=== PATIENT | female | born 1980 | race Two or more races ===

== ENCOUNTER 2024-09-15 11:16 | Inpatient (IN) | payer OTHER ==
[~2024-09-15] VITALS: Ht 149.9 cm; Wt 65.8 kg
[2024-09-15] MEDS ORDERED: VITAMIN E400 UNI7 PO (12:30)
[2024-09-21] MEDS ORDERED: BUPIVACAINE HCL 30 ML VIAL IJ ONE (08:45)
[2024-09-21] MEDS ORDERED: CEFTRIAXONE SODIUM 2,000 MG VIAL IV ONE (08:45)
[2024-09-21] MEDS ORDERED: METRONIDAZOLE/SODIUM CHLORIDE 500 MG/100 ML PIGGYBACK IV ONE (08:45)
[2024-09-21] MEDS ORDERED: LIDOCAINE HCL 1%/EPINEPHRINE 20ML VIAL IJ ONE (09:00)
[2024-09-21] MEDS ORDERED: MORPHINE SULFATE 4 MG/ML VIAL IV ONE ×2 (11:05→11:35)
[2024-09-21] MEDS ORDERED: ONDANSETRON HCL 2 MG/ML VIAL IV ONE (11:10)
[2024-09-21] MEDS ORDERED: OxyCODONE HCL 5 MG TABLET (ROXICODONE) PO PRN (11:45)
[2024-09-21] MEDS ORDERED: MORPHINE SULFATE 4 MG/ML CARTRIDGE IV PRN (11:45)
[2024-09-21] MEDS ORDERED: ONDANSETRON HCL 2 MG/ML VIAL IV PRN (11:45)
[2024-09-21] MEDS ORDERED: RINGERS SOLUTION,LACTATED 1,000 ML IV SCH (11:45)
[2024-09-21 12:32] LABS: HEMATOCRIT 34.7 % (36.0-45.00); HEMOGLOBIN 11.8 g/dL (12.0-15.00); MEAN CELL VOLUME 89.7 fL (80.00-100.00); MEAN CORPUSCULAR HEMOGLOBIN 30.5 pg (27.00-32.0); PLATELET COUNT 210 K/uL (150-450); RED BLOOD COUNT 3.87 M/uL (4.00-6.00); RED CELL DISTRIBUTION WIDTH 12.3 % (11.5-14.5)
[2024-09-21] MEDS ORDERED: HYOSCYAMINE SULFATE 0.125 MG TAB.SUBL SL SCH (13:00)
[2024-09-21] MEDS ORDERED: SIMETHICONE 125 MG CAPSULE PO SCH (13:00)
[2024-09-21] MEDS ORDERED: ACETAMINOPHEN 500 MG GEL..CAP PO SCH (14:00)
[2024-09-21 14:32] VITALS: BP 114/79; O2SAT 97
[2024-09-21 16:43] VITALS: BP 119/83; O2SAT 98
[2024-09-21] MEDS ORDERED: CELECOXIB 200 MG CAPSULE PO SCH (17:00)
[2024-09-21] MEDS ORDERED: POLYETHYLENE GLYCOL 3350 17 GM BLIST.PACK PO SCH (17:00)
[2024-09-21] MEDS ORDERED: GABAPENTIN 300 MG CAPSULE PO SCH (17:00)
[2024-09-21] MEDS ORDERED: METOCLOPRAMIDE HCL 5 MG/ML VIAL IV SCH (17:00)
[2024-09-21] MEDS ORDERED: FAMOTIDINE/PF 20 MG/2 ML VIAL IV PUSH SCH (21:00)
[2024-09-22 00:39] VITALS: BP 107/67; O2SAT 95
[2024-09-22 06:45] LABS: HEMATOCRIT 33.3 % (36.0-45.00); HEMOGLOBIN 11.5 g/dL (12.0-15.00); MEAN CELL VOLUME 88.9 fL (80.00-100.00); MEAN CORPUSCULAR HEMOGLOBIN 30.8 pg (27.00-32.0); MEAN CORPUSCULAR HGB CONC 34.7 g/dl (32.0-36.0); PLATELET COUNT 200 K/uL (150-450); RED BLOOD COUNT 3.75 M/uL (4.00-6.00); RED CELL DISTRIBUTION WIDTH 12.2 % (11.5-14.5)
[2024-09-22 07:25] LABS: ALBUMIN 3.3 gm/dL (3.4-5.0); CALCIUM 8.6 mg/dL (8.5-10.1); CREATININE SERUM 0.62 mg/dL (0.55-1.02); GFR 105.56; MAGNESIUM 1.6 mg/dL (1.8-2.4); PHOSPHOROUS 2.8 mg/dL (2.5-4.9); POTASSIUM 3.53 mEq/L (3.5-5.1)
[2024-09-22 08:45] VITALS: BP 85/61; O2SAT 93
[2024-09-22] MEDS ORDERED: LACTULOSE 20 G/30 ML BLIST.PACK PO SCH (09:00)
[2024-09-22] MEDS ORDERED: LACTOBACILLUS ACIDOPHILUS 1 CAP CAP PO SCH (09:00)
[2024-09-22 10:58] VITALS: BP 102/68; O2SAT 99
[2024-09-22] MEDS ORDERED: MAGNESIUM SULFATE IN WATER 50 ML IV NR (11:35)
[2024-09-22] MEDS ORDERED: ENOXAPARIN SODIUM 40 MG/0.4 ML SYRINGE SUBCUTANEO SCH (17:00)
[2024-09-22 17:23] VITALS: BP 100/62; O2SAT 93
[2024-09-22 18:54] VITALS: BP 79/54; O2SAT 95
[2024-09-22] MEDS ORDERED: 0.9 % SODIUM CHLORIDE 1,000 ML IV SCH (19:00)
[2024-09-22 19:20] VITALS: BP 120/71
[2024-09-23 00:26] VITALS: BP 125/84; O2SAT 96
[2024-09-23 07:26] LABS: HEMATOCRIT 28.6 % (36.0-45.00); HEMOGLOBIN 9.9 g/dL (12.0-15.00); MEAN CELL VOLUME 88.8 fL (80.00-100.00); MEAN CORPUSCULAR HEMOGLOBIN 30.7 pg (27.00-32.0); MEAN CORPUSCULAR HGB CONC 34.6 g/dl (32.0-36.0); PLATELET COUNT 184 K/uL (150-450); RED BLOOD COUNT 3.22 M/uL (4.00-6.00); RED CELL DISTRIBUTION WIDTH 12.6 % (11.5-14.5)
[2024-09-23 08:00] VITALS: BP 133/71; O2SAT 98
[2024-09-23 09:00] LABS: CALCIUM 8.3 mg/dL (8.5-10.1); CREATININE SERUM 0.66 mg/dL (0.55-1.02); GFR 98.21; MAGNESIUM 2.2 mg/dL (1.8-2.4); POTASSIUM 3.25 mEq/L (3.5-5.1)
[2024-09-23] MEDS ORDERED: ENOXAPARIN SODIUM 40 MG/0.4 ML SYRINGE SUBCUTANEO SCH (09:00)
[2024-09-23 09:26] LABS: PHOSPHOROUS 1.5 mg/dL (2.5-4.9)
[2024-09-23] MEDS ORDERED: POTASSIUM CHLORIDE 20MEQ/100ML H2O PB IV NR (11:00)
[2024-09-23] MEDS ORDERED: Cyanocobalamin/Mecobalamin 1 TAB.SL SL NR (11:00)
[2024-09-23] MEDS ORDERED: SOD FERRIC GLUC COMPLX/SUCROSE 62.5 MG/5 ML AMPUL IV NR (11:00)
[2024-09-23] MEDS ORDERED: PIPERACILLIN/TAZOBACTAM SODIUM 3.375 GM in 0.9 % SODIUM CHLORIDE 100 ML IV SCH (12:00)
[2024-09-23] MEDS ORDERED: TRAMADOL HCL 50 MG TABLET PO PRN (14:00)
[2024-09-23] MEDS ORDERED: POTASSIUM PHOS,M-BASIC-D-BASIC 15 MM in 0.9 % SODIUM CHLORIDE 250 ML IV ONE (17:00)
[2024-09-23 19:06] VITALS: BP 148/87; O2SAT 98
[2024-09-24 01:31] VITALS: BP 118/75; O2SAT 94
[2024-09-24 06:41] LABS: HEMATOCRIT 26.6 % (36.0-45.00); HEMOGLOBIN 9.1 g/dL (12.0-15.00); MEAN CELL VOLUME 90.5 fL (80.00-100.00); MEAN CORPUSCULAR HEMOGLOBIN 30.8 pg (27.00-32.0); MEAN CORPUSCULAR HGB CONC 34.1 g/dl (32.0-36.0); PLATELET COUNT 198 K/uL (150-450); RED BLOOD COUNT 2.94 M/uL (4.00-6.00); RED CELL DISTRIBUTION WIDTH 12.5 % (11.5-14.5)
[2024-09-24 07:25] LABS: CALCIUM 8.4 mg/dL (8.5-10.1); CREATININE SERUM 0.57 mg/dL (0.55-1.02); GFR 116.32; MAGNESIUM 2.3 mg/dL (1.8-2.4); PHOSPHOROUS 2.1 mg/dL (2.5-4.9); POTASSIUM 3.23 mEq/L (3.5-5.1)
[2024-09-24 08:09] VITALS: BP 133/84; O2SAT 96
[2024-09-24] MEDS ORDERED: Cyanocobalamin/Mecobalamin 1 TAB.SL SL SCH (09:00)
[2024-09-24] MEDS ORDERED: SOD FERRIC GLUC COMPLX/SUCROSE 62.5 MG in 0.9 % SODIUM CHLORIDE 50 ML IV SCH (09:00)
[2024-09-24] MEDS ORDERED: POTASSIUM PHOS,M-BASIC-D-BASIC 3 MM/ML VIAL IV NR (09:15)
[2024-09-24] MEDS ORDERED: POTASSIUM CHLORIDE 20MEQ/100ML H2O PB IV NR (10:00)
[2024-09-24] MEDS ORDERED: MORPHINE SULFATE 2 MG/ML CARTRIDGE IV PRN (10:30)
[2024-09-24 16:21] VITALS: BP 134/83; O2SAT 97
[2024-09-24] MEDS ORDERED: AA 4.25%/CAL/LYTES/DEXT 5% 1,000 ML PERIFERAL SCH (17:00)
[2024-09-25 01:00] VITALS: BP 137/86; O2SAT 97
[2024-09-25 08:24] VITALS: BP 146/79; O2SAT 95
[2024-09-25 08:47] LABS: CALCIUM 7.9 mg/dL (8.5-10.1); CREATININE SERUM 0.45 mg/dL (0.55-1.02); GFR 152.8; MAGNESIUM 2.1 mg/dL (1.8-2.4); PHOSPHOROUS 2.1 mg/dL (2.5-4.9); POTASSIUM 3.46 mEq/L (3.5-5.1)
[2024-09-25 08:57] LABS: MEAN CELL VOLUME 89.3 fL (80.00-100.00); MEAN CORPUSCULAR HGB CONC 35.5 g/dl (32.0-36.0); PLATELET COUNT 204 K/uL (150-450); RED BLOOD COUNT 2.59 M/uL (4.00-6.00)
[2024-09-25 09:27] LABS: MEAN CORPUSCULAR HEMOGLOBIN 31.6 pg (27.00-32.0)
[2024-09-25 09:29] LABS: HEMOGLOBIN 8.2 g/dL (12.0-15.00)
[2024-09-25 09:31] LABS: HEMATOCRIT 23.1 % (36.0-45.00)
[2024-09-25] MEDS ORDERED: AMINOCAPROIC ACID 250 MG/ML VIAL IV STA (09:43)
[2024-09-25] MEDS ORDERED: FUROsemide 20 MG/2 ML VIAL IV SCH (10:00)
[2024-09-25] MEDS ORDERED: POTASSIUM PHOS,M-BASIC-D-BASIC 3 MM/ML VIAL IV NR (10:00)
[2024-09-25] MEDS ORDERED: POTASSIUM CHLORIDE 20MEQ/100ML H2O PB IV NR (10:30)
[2024-09-25] MEDS ORDERED: AMINOCAPROIC ACID 250 MG/ML VIAL IV SCH (18:00)
[2024-09-25 18:25] VITALS: BP 133/81; O2SAT 94
[2024-09-25] MEDS ORDERED: MELATONIN 5 MG TABLET PO SCH (21:00)
[2024-09-26] VITALS: BP 130/85; O2SAT 97
[2024-09-26 08:25] VITALS: BP 140/93; O2SAT 98
[2024-09-26 11:20] LABS: HEMATOCRIT 31.1 % (36.0-45.00); HEMOGLOBIN 10.6 g/dL (12.0-15.00); MEAN CELL VOLUME 89.8 fL (80.00-100.00); MEAN CORPUSCULAR HEMOGLOBIN 30.8 pg (27.00-32.0); MEAN CORPUSCULAR HGB CONC 34.3 g/dl (32.0-36.0); PLATELET COUNT 215 K/uL (150-450); RED BLOOD COUNT 3.46 M/uL (4.00-6.00); RED CELL DISTRIBUTION WIDTH 13.1 % (11.5-14.5)
[2024-09-26 11:29] LABS: CALCIUM 8.4 mg/dL (8.5-10.1); CREATININE SERUM 0.5 mg/dL (0.55-1.02); GFR 135.3; MAGNESIUM 1.8 mg/dL (1.8-2.4); PHOSPHOROUS 3.1 mg/dL (2.5-4.9); POTASSIUM 3.3 mEq/L (3.5-5.1)
[2024-09-26] MEDS ORDERED: POTASSIUM CHLORIDE 20MEQ/100ML H2O PB IV NR (13:40)
[2024-09-26] MEDS ORDERED: MAGNESIUM SULFATE/D5W 100 ML IV NR (13:40)
[2024-09-26] MEDS ORDERED: MAGNESIUM CHLORIDE 70 MG TABLET.DR PO STA (13:52)
[2024-09-26] MEDS ORDERED: POTASSIUM CHLORIDE 8 MEQ TABLET PO STA (13:52)
[2024-09-26 15:58] VITALS: BP 150/91; O2SAT 98
== END 2024-09-26 16:15 | disposition home or self-care (01) | DRG 331 ==
LOC: O/R 09-21 05:25 → SURH 09-21 11:30 → SURG 09-21 14:04 → SURH 09-21 17:45 → SURG 09-23 15:55
PROVIDERS: Internal Medicine Geriatric Medicine; ADMIT Colon & Rectal Surgery; ATTEND Colon & Rectal Surgery
PROC: 0DBP4ZZ Excision of Rectum, Percutaneous Endoscopic Approach (ICD-10-PCS; 2024-09-21)
PROC: 0TN74ZZ Release Left Ureter, Percutaneous Endoscopic Approach (ICD-10-PCS; 2024-09-21)
PROC: 0TN64ZZ Release Right Ureter, Percutaneous Endoscopic Approach (ICD-10-PCS; 2024-09-21)
PROC: 0DJD8ZZ Inspection of Lower Intestinal Tract, Via Natural or Artificial Opening Endoscopic (ICD-10-PCS; 2024-09-21)
PROC: 0DTN4ZZ Resection of Sigmoid Colon, Percutaneous Endoscopic Approach (ICD-10-PCS; principal; 2024-09-21 17:45)
PROC: 02HV33Z Insertion of Infusion Device into Superior Vena Cava, Percutaneous Approach (ICD-10-PCS; 2024-09-24)
PROC: 30233N1 Transfusion of Nonautologous Red Blood Cells into Peripheral Vein, Percutaneous Approach (ICD-10-PCS; 2024-09-25)
DX: K57.32 Diverticulitis of large intestine without perforation or abscess without bleeding (principal); N80.34 Deep endometriosis of the pelvic sidewall; N80.322 Deep endometriosis of the posterior cul-de-sac; D64.9 Anemia, unspecified

== ENCOUNTER 2024-09-29 04:32 | Inpatient (IN) | payer OTHER ==
[~2024-09-29] VITALS: Ht 152.4 cm; Wt 0.5 kg
[~2024-09-29 04:32] MED LIST: VITAMIN E400 UNI7 PO
[2024-09-29] MEDS ORDERED: MEPERIDINE HCL/PF 50 MG/ML VIAL IM STA ×2 (04:43→09:31)
[2024-09-29] MEDS ORDERED: PROMETHAZINE HCL 50 MG/ML AMPUL IM STA (04:43)
[2024-09-29] MEDS ORDERED: 0.9 % SODIUM CHLORIDE 1,000 ML IV ONE (04:45)
[2024-09-29 04:58] LABS: HEMATOCRIT 36.1 % (36.0-45.00); HEMOGLOBIN 12.8 g/dL (12.0-15.00); MEAN CELL VOLUME 88.5 fL (80.00-100.00); MEAN CORPUSCULAR HEMOGLOBIN 31.5 pg (27.00-32.0); MEAN CORPUSCULAR HGB CONC 35.6 g/dl (32.0-36.0); PLATELET COUNT 325 K/uL (150-450); RED BLOOD COUNT 4.08 M/uL (4.00-6.00); RED CELL DISTRIBUTION WIDTH 13.4 % (11.5-14.5)
--- NOTE | 2024-09-29 05:01 | NUR ---
PTE ALERTA Y ORIENTADA X3, LLEGA EN AMBULANCIA EN COMPANIA DE PARAMEDICOS, REIFERE MUCHO DOLOR EN FLANCO LADO DERECHO. REFIERE EL AILIN FUE OPERADA POR POR ENDOMETRIOSIS. PTE PREVIAMENTE CANALIAZADA, AREA PATENTE Y FARHEEN DE EDEMA. SE ORIENTA SOBRE [place] MEDICO Y REFIERE ENTENDER Y ACEPTAR. SE COLECTAN MUESTRAS DE LAB BAJO MEDIDAS ASEPTICAS. SE ADMINSITRA MEDS NATALY ORDEN MEDICA Y NO PRESENTA REACCION ADVERSA. SE HACE ENTREGA DE ENVASE PARA U/A Y DE CONTRASTE PO PARA CT. PTE BAJO OBSERVACION POR CAMBIOS SIGNIFICATIVOS.
[2024-09-29] MEDS ORDERED: MEPERIDINE HCL/PF 25 MG/ML VIAL IV STA (05:32)
[2024-09-29 05:35] LABS: ALBUMIN 2.8 gm/dL (3.4-5.0); BILIRUBIN TOTAL 0.94 mg/dL (0.3-1.2); CALCIUM 8.5 mg/dL (8.5-10.1); CREATININE SERUM 0.69 mg/dL (0.55-1.02); GFR 93.3; GLOBULINA 3.7 G/DL (2.4-3.5); INR 1.1; PARTIAL THROMBOPLASTIN TIME 27.9 SECONDS (22.0-34.0); POTASSIUM 3.64 mEq/L (3.5-5.1); PROTHROMBIN TIME 11.9 SECONDS (9.0-11.5); TOTAL PROTEIN 6.5 gm/dL (6.4-8.2)
--- NOTE | 2024-09-29 07:20 | NUR ---
SE RECIBE PACIENTE DEL TURNO ANTERIOR ALERTA Y ORIENTADA X3. SE OBSERVA CANALIZACION EN RA CON ANGIO #20 QUE SE ENCUENTRA PATENTE FARHEEN DE EDEMA Y PROCESOS INFECCIOSOS. SE ENCUENTRA CON 0.9NSS BAJANDO A 150ML/HR. PENDIENTE CT.
[2024-09-29] MEDS ORDERED: CIPROFLOXACIN IN 5 % DEXTROSE 400 MG/200 ML PIGGYBAG IV STA (07:24)
[2024-09-29] MEDS ORDERED: METRONIDAZOLE/SODIUM CHLORIDE 500 MG/100 ML PIGGYBACK IV STA (07:24)
[2024-09-29 07:45] LABS: PH,URINE 6.5 (5.0-8.0); URINE APPEARANCE Turbid; URINE BILIRRUBIN Negative (NEGATIVE); URINE COLOR Yellow; URINE GLUCOSE Negative (NEGATIVE); URINE KETONE 15 (NEGATIVE); URINE LEUKOCYTE Small; URINE NITRATE Negative; URINE PROTEIN Trace (NEGATIVE); URINE UROBILINOGEN 0.2 E.U./dl
[2024-09-29 07:49] LABS: URINE BACTERIA 500.1 uL (0.0-1933); URINE EPITHELIAL CELLS 75.7 uL (0.0-38.8); URINE RBC 52.3 uL (0.0-20.8); URINE WBC 59.3 uL (0.0-23.2)
[2024-09-29 08:37] LABS: URINE BLOOD TRACES; URINE CAST 0.76 uL (0.0-1.40)
[2024-09-29 08:39] LABS: URINE CRYSTALS MODERATE /HPF
--- NOTE | 2024-09-29 09:19 | NUR ---
PACIENTE ALERTA Y ORIENTADA X3. SE EDUCA A PACIENTE SOBRE ADMINISTRACION DE MEDICAMENTOS, REFIERE ENTENDER. SE EJECUTAN ORDENES BAJO MEDIDAS ASEPTICAS.
--- NOTE | 2024-09-29 09:20 | NUR ---
SE REALIZA CT DE ABDOMEN.
[2024-09-29] MEDS ORDERED: RINGERS SOLUTION,LACTATED 1,000 ML IV SCH (11:15)
[2024-09-29] MEDS ORDERED: MORPHINE SULFATE 4 MG/ML VIAL IV PRN (11:15)
[2024-09-29] MEDS ORDERED: PIPERACILLIN/TAZOBACTAM SODIUM 3.375 GM in 0.9 % SODIUM CHLORIDE 100 ML IV SCH (12:00)
[2024-09-29 13:58] VITALS: BP 149/95; O2SAT 96
[2024-09-29 14:26] VITALS: BP 140/92
[2024-09-29 15:43] LABS: INR 1.1; PARTIAL THROMBOPLASTIN TIME 29.3 SECONDS (22.0-34.0); PROTHROMBIN TIME 11.9 SECONDS (9.0-11.5)
[2024-09-29 16:21] VITALS: BP 136/89; O2SAT 95
[2024-09-29 16:35] VITALS: BP 116/74; O2SAT 98
[2024-09-29] MEDS ORDERED: METOCLOPRAMIDE HCL 5 MG/ML VIAL IV SCH (17:00)
[2024-09-29] MEDS ORDERED: FAMOTIDINE/PF 20 MG/2 ML VIAL IV SCH (21:00)
[2024-09-30] VITALS: BP 140/87; O2SAT 97
[2024-09-30 06:49] LABS: HEMATOCRIT 35.4 % (36.0-45.00); HEMOGLOBIN 11.8 g/dL (12.0-15.00); MEAN CELL VOLUME 90.9 fL (80.00-100.00); MEAN CORPUSCULAR HEMOGLOBIN 30.3 pg (27.00-32.0); MEAN CORPUSCULAR HGB CONC 33.3 g/dl (32.0-36.0); PLATELET COUNT 299 K/uL (150-450); RED CELL DISTRIBUTION WIDTH 13.4 % (11.5-14.5)
[2024-09-30 07:11] LABS: ALBUMIN 2.5 gm/dL (3.4-5.0); CALCIUM 8.2 mg/dL (8.5-10.1); CREATININE SERUM 0.87 mg/dL (0.55-1.02); GFR 71.4; MAGNESIUM 2.3 mg/dL (1.8-2.4); POTASSIUM 3.92 mEq/L (3.5-5.1)
[2024-09-30 08:00] VITALS: BP 128/78; O2SAT 96
[2024-09-30] MEDS ORDERED: LACTOBACILLUS ACIDOPHILUS 1 CAP CAP PO SCH (09:00)
[2024-09-30 15:00] VITALS: BP 127/86; O2SAT 99
[2024-09-30 16:44] LABS: URINE APPEARANCE Clear; URINE BILIRRUBIN Negative (NEGATIVE); URINE BLOOD Small; URINE COLOR Yellow; URINE GLUCOSE Negative (NEGATIVE); URINE KETONE Trace (NEGATIVE); URINE LEUKOCYTE Small; URINE NITRATE Negative; URINE PROTEIN 30 (NEGATIVE); URINE UROBILINOGEN 0.2 E.U./dl
[2024-09-30 16:45] LABS: URINE BACTERIA 37.7 uL (0.0-1933); URINE RBC 68.2 uL (0.0-20.8); URINE WBC 112.3 uL (0.0-23.2)
[2024-09-30 17:00] LABS: URINE EPITHELIAL CELLS 0-4 /HPF
[2024-09-30] MEDS ORDERED: VANCOMYCIN HCL 1,000 MG VIAL IV SCH (17:00)
[2024-10-01 01:02] VITALS: BP 139/84; O2SAT 98
[2024-10-01 07:01] LABS: HEMATOCRIT 35.2 % (36.0-45.00); HEMOGLOBIN 11.7 g/dL (12.0-15.00); MEAN CELL VOLUME 90.7 fL (80.00-100.00); MEAN CORPUSCULAR HEMOGLOBIN 30.3 pg (27.00-32.0); MEAN CORPUSCULAR HGB CONC 33.4 g/dl (32.0-36.0); PLATELET COUNT 307 K/uL (150-450); RED BLOOD COUNT 3.88 M/uL (4.00-6.00); RED CELL DISTRIBUTION WIDTH 13.3 % (11.5-14.5)
[2024-10-01 07:45] LABS: ALBUMIN 2.6 gm/dL (3.4-5.0); BILIRUBIN TOTAL 0.93 mg/dL (0.3-1.2); CALCIUM 8.4 mg/dL (8.5-10.1); CREATININE SERUM 1.09 mg/dL (0.55-1.02); GFR 55.05; GLOBULINA 4.3 G/DL (2.4-3.5); MAGNESIUM 2.2 mg/dL (1.8-2.4); PHOSPHOROUS 2.2 mg/dL (2.5-4.9); POTASSIUM 3.63 mEq/L (3.5-5.1); TOTAL PROTEIN 6.9 gm/dL (6.4-8.2)
[2024-10-01 07:46] LABS: C-REACTIVE PROTEIN 15.7 MG/DL (0.00-0.29)
[2024-10-01 08:00] VITALS: BP 141/89; O2SAT 99
[2024-10-01] MEDS ORDERED: MORPHINE SULFATE 4 MG/ML CARTRIDGE IV PRN (14:15)
[2024-10-01] MEDS ORDERED: MEROPENEM 500 MG/VIAL VIAL IV NR (14:30)
[2024-10-01] MEDS ORDERED: GABAPENTIN 300 MG CAPSULE PO NR (14:30)
[2024-10-01] MEDS ORDERED: MIDAZOLAM HCL 2 MG/2 ML VIAL IV PUSH ONE (15:30)
[2024-10-01] MEDS ORDERED: fentaNYL CITRATE 50 MCG/ML AMPUL IV PUSH ONE (15:30)
[2024-10-01 19:07] VITALS: BP 156/93; O2SAT 98
[2024-10-01] MEDS ORDERED: MEROPENEM 500 MG/VIAL VIAL IV SCH (20:00)
[2024-10-01] MEDS ORDERED: GABAPENTIN 300 MG CAPSULE PO SCH (21:00)
[2024-10-02 01:04] VITALS: BP 138/90; O2SAT 98
[2024-10-02 08:27] LABS: ALBUMIN 2.6 gm/dL (3.4-5.0); BILIRUBIN TOTAL 0.82 mg/dL (0.3-1.2); CALCIUM 8.4 mg/dL (8.5-10.1); GFR 60.8; GLOBULINA 3.7 G/DL (2.4-3.5); MAGNESIUM 2.2 mg/dL (1.8-2.4); PHOSPHOROUS 3.2 mg/dL (2.5-4.9); POTASSIUM 4.34 mEq/L (3.5-5.1); TOTAL PROTEIN 6.3 gm/dL (6.4-8.2)
[2024-10-02 08:30] LABS: HEMATOCRIT 35.5 % (36.0-45.00); HEMOGLOBIN 11.7 g/dL (12.0-15.00); MEAN CELL VOLUME 91.9 fL (80.00-100.00); MEAN CORPUSCULAR HEMOGLOBIN 30.3 pg (27.00-32.0); PLATELET COUNT 301 K/uL (150-450); RED BLOOD COUNT 3.86 M/uL (4.00-6.00); RED CELL DISTRIBUTION WIDTH 13.4 % (11.5-14.5)
[2024-10-02 08:31] LABS: C-REACTIVE PROTEIN 17.4 MG/DL (0.00-0.29)
[2024-10-02 10:09] VITALS: BP 158/80; O2SAT 98
[2024-10-02 16:30] VITALS: BP 137/81; O2SAT 96
[2024-10-03 01:14] VITALS: BP 120/90; O2SAT 98
[2024-10-03] MEDS ORDERED: CHLORHEXIDINE GLUCONATE 120 ML BOTTLE TOP ONE (09:15)
[2024-10-03] MEDS ORDERED: IOVERSOL 320 MG/ML - 100 ML VIAL IV ONE (09:15)
[2024-10-03 10:28] VITALS: BP 164/72; O2SAT 99
[2024-10-03 16:00] VITALS: BP 123/73; O2SAT 98
[2024-10-04] VITALS: BP 135/84; O2SAT 97
[2024-10-04 08:25] VITALS: BP 121/81; O2SAT 94
[2024-10-04 16:20] VITALS: BP 127/84; O2SAT 99
[2024-10-04] MEDS ORDERED: FLUCONAZOLE IN NACL,ISO-OSM 400 MG/200 ML PIGGYBAG IV SCH (17:00)
[2024-10-04] MEDS ORDERED: MORPHINE SULFATE 4 MG/ML CARTRIDGE IV PRN (21:45)
[2024-10-05] VITALS: BP 128/75; O2SAT 96
[2024-10-05 07:46] LABS: HEMATOCRIT 32.2 % (36.0-45.00); HEMOGLOBIN 11.1 g/dL (12.0-15.00); MEAN CELL VOLUME 88.6 fL (80.00-100.00); MEAN CORPUSCULAR HEMOGLOBIN 30.6 pg (27.00-32.0); MEAN CORPUSCULAR HGB CONC 34.6 g/dl (32.0-36.0); PLATELET COUNT 379 K/uL (150-450); RED BLOOD COUNT 3.63 M/uL (4.00-6.00); RED CELL DISTRIBUTION WIDTH 13.5 % (11.5-14.5)
[2024-10-05 08:02] VITALS: BP 142/70; O2SAT 98
[2024-10-05 09:00] LABS: ALBUMIN 2.7 gm/dL (3.4-5.0); BILIRUBIN TOTAL 0.58 mg/dL (0.3-1.2); CALCIUM 8.9 mg/dL (8.5-10.1); CREATININE SERUM 0.49 mg/dL (0.55-1.02); GFR 138.5; GLOBULINA 3.8 G/DL (2.4-3.5); MAGNESIUM 1.9 mg/dL (1.8-2.4); PHOSPHOROUS 3.9 mg/dL (2.5-4.9); POTASSIUM 4.09 mEq/L (3.5-5.1); TOTAL PROTEIN 6.5 gm/dL (6.4-8.2)
[2024-10-05 09:01] LABS: C-REACTIVE PROTEIN 6.54 MG/DL (0.00-0.29)
[2024-10-05] MEDS ORDERED: FLUCONAZOLE IN NACL,ISO-OSM 200 MG/100 ML PIGGYBAG IV SCH (17:00)
[2024-10-05 18:45] VITALS: BP 145/80; O2SAT 98
[2024-10-06] VITALS: BP 131/77; O2SAT 98
[2024-10-06 08:54] VITALS: BP 122/81; O2SAT 99
[2024-10-06 16:00] VITALS: BP 123/84; O2SAT 98
[2024-10-07] VITALS: BP 122/84; O2SAT 95
[2024-10-07 08:15] VITALS: BP 117/82; O2SAT 99
[2024-10-07] MEDS ORDERED: MORPHINE SULFATE 4 MG/ML CARTRIDGE IV PRN (13:15)
[2024-10-07 16:00] VITALS: BP 118/74; O2SAT 98
[2024-10-08] VITALS: BP 106/72; O2SAT 98
[2024-10-08 08:00] VITALS: BP 139/86; O2SAT 100
[2024-10-08 16:17] VITALS: BP 137/77; O2SAT 98
== END 2024-10-08 20:55 | disposition home or self-care (01) | DRG 372 ==
LOC: ER 04:32 → SURH 12:03
PROVIDERS: General Practice; Internal Medicine Infectious Disease; ADMIT Colon & Rectal Surgery; ATTEND Colon & Rectal Surgery
PROC: BW21YZZ Computerized Tomography (CT Scan) of Abdomen and Pelvis using Other Contrast (ICD-10-PCS; 2024-09-29)
PROC: 0W9G30Z Drainage of Peritoneal Cavity with Drainage Device, Percutaneous Approach (ICD-10-PCS; principal; 2024-10-01)
PROC: 0T9680Z Drainage of Right Ureter with Drainage Device, Via Natural or Artificial Opening Endoscopic (ICD-10-PCS; 2024-10-03)
PROC: BW21YZZ Computerized Tomography (CT Scan) of Abdomen and Pelvis using Other Contrast (ICD-10-PCS; 2024-10-06)
PROC: 02HV33Z Insertion of Infusion Device into Superior Vena Cava, Percutaneous Approach (ICD-10-PCS; 2024-10-08)
DX: K65.1 Peritoneal abscess (principal); K91.870 Postprocedural hematoma of a digestive system organ or structure following a digestive system procedure; N13.30 Unspecified hydronephrosis; B96.20 Unspecified Escherichia coli [E. coli] as the cause of diseases classified elsewhere; B96.89 Other specified bacterial agents as the cause of diseases classified elsewhere

== ENCOUNTER 2024-10-18 08:36 | Inpatient (IN) | payer OTHER ==
[~2024-10-18] VITALS: Ht 149.9 cm; Wt 57.6 kg
--- NOTE | 2024-10-18 08:49 | NUR ---
PACIENTE ALERTA Y ORIENTADA X 3. REFIERE FUE OPERADA EL DE LOS INTESTINOS POR DR GUZMAN Y LUEGO DE ESTO A TENIDO QUE REGRESAR EN VARIAS OCASIONES PARA OTROS PROCEDIMIENTOS. REFIERE DOLOR EN AREA PELVICA LADO DERECHO
[2024-10-18] MEDS ORDERED: CEFTRIAXONE SODIUM 1,000 MG VIAL IV ONE (09:15)
[2024-10-18] MEDS ORDERED: KETOROLAC TROMETHAMINE 30 MG VIAL IV ONE (09:15)
[2024-10-18] MEDS ORDERED: 0.9 % SODIUM CHLORIDE 1,000 ML IV ONE (09:15)
--- NOTE | 2024-10-18 09:23 | NUR ---
MS TREVINO ORIENTA SOBRE TRATAMIENTO MEDICO. CANALIZA VENA Y SE ISAIAH MUESTRAS DE LAB. SE ADMINISTRA MEDICAMENTO POR ORDEN MEDICA. PENDIENTE CT IV
[2024-10-18 09:37] LABS: HEMATOCRIT 34.1 % (36.0-45.00); HEMOGLOBIN 11.5 g/dL (12.0-15.00); MEAN CELL VOLUME 88.2 fL (80.00-100.00); MEAN CORPUSCULAR HEMOGLOBIN 29.7 pg (27.00-32.0); MEAN CORPUSCULAR HGB CONC 33.6 g/dl (32.0-36.0); PLATELET COUNT 256 K/uL (150-450); RED BLOOD COUNT 3.86 M/uL (4.00-6.00); RED CELL DISTRIBUTION WIDTH 13.1 % (11.5-14.5)
[2024-10-18 09:45] LABS: ERYTHROCYTE SEDIMENTATION RATE 83 mm/hr
[2024-10-18 10:12] LABS: INR 1.1; PARTIAL THROMBOPLASTIN TIME 28.7 SECONDS (22.0-34.0); PROTHROMBIN TIME 11.9 SECONDS (9.0-11.5)
[2024-10-18 10:28] LABS: ALBUMIN 3.1 gm/dL (3.4-5.0); BILIRUBIN TOTAL 0.67 mg/dL (0.3-1.2); CALCIUM 9.2 mg/dL (8.5-10.1); CREATININE SERUM 0.67 mg/dL (0.55-1.02); GFR 96.52; GLOBULINA 3.9 G/DL (2.4-3.5); POTASSIUM 4.42 mEq/L (3.5-5.1)
[2024-10-18 10:31] LABS: C-REACTIVE PROTEIN 7.84 MG/DL (0.00-0.29)
[2024-10-18 11:13] LABS: URINE APPEARANCE Turbid; URINE BILIRRUBIN Small (NEGATIVE); URINE BLOOD Large; URINE COLOR Dark Yellow; URINE GLUCOSE Negative (NEGATIVE); URINE KETONE Trace (NEGATIVE); URINE LEUKOCYTE Small; URINE NITRATE Negative
[2024-10-18 11:18] LABS: URINE BACTERIA 772.3 uL (0.0-1933); URINE CAST 1.83 uL (0.0-1.40); URINE EPITHELIAL CELLS 94.7 uL (0.0-38.8); URINE RBC 884.2 uL (0.0-20.8); URINE WBC 748.3 uL (0.0-23.2)
[2024-10-18 12:02] LABS: URINE CRYSTALS FEW /HPF; URINE MUCUS HEAVY; URINE PROTEIN 100 (NEGATIVE)
[2024-10-18] MEDS ORDERED: ONDANSETRON HCL 2 MG/ML VIAL IV PRN (13:30)
[2024-10-18] MEDS ORDERED: MORPHINE SULFATE 4 MG/ML VIAL IV PRN (13:30)
[2024-10-18] MEDS ORDERED: RINGERS SOLUTION,LACTATED 1,000 ML IV SCH (13:30)
[2024-10-18] MEDS ORDERED: GABAPENTIN 300 MG CAPSULE PO SCH (13:33)
[2024-10-18] MEDS ORDERED: PANTOPRAZOLE SODIUM 40 MG/VIAL VIAL IV SCH (13:33)
[2024-10-18] MEDS ORDERED: ACETAMINOPHEN 500 MG GEL..CAP PO SCH (13:36)
[2024-10-18] MEDS ORDERED: PIPERACILLIN/TAZOBACTAM SODIUM 3.375 GM VIAL IV SCH (13:36)
[2024-10-18] MEDS ORDERED: GABAPENTIN 100 MG CAPSULE PO SCH (13:40)
[2024-10-18] MEDS ORDERED: MORPHINE SULFATE 4 MG/ML CARTRIDGE IV PRN (13:45)
[2024-10-18 15:29] VITALS: BP 110/60
[2024-10-18] MEDS ORDERED: AMINO ACIDS 4.25%/DEXTROSE 10% 1,000 ML CENTRAL SCH (17:00)
[2024-10-18 18:00] VITALS: BP 102/67; O2SAT 96
[2024-10-19] VITALS: BP 158/78; BP 93/68; O2SAT 95; O2SAT 97
[2024-10-19 03:20] VITALS: BP 116/67
[2024-10-19 08:27] VITALS: BP 99/64; O2SAT 97
[2024-10-19] MEDS ORDERED: MULTIVIT INFUSN,ADULT 4,VIT K 10 ML in DEXTROSE 5 % IN WATER 500 ML IV SCH (09:55)
[2024-10-19 10:05] LABS: HEMATOCRIT 29.1 % (36.0-45.00); HEMOGLOBIN 9.7 g/dL (12.0-15.00); MEAN CORPUSCULAR HEMOGLOBIN 29.8 pg (27.00-32.0); MEAN CORPUSCULAR HGB CONC 33.5 g/dl (32.0-36.0); PLATELET COUNT 216 K/uL (150-450); RED BLOOD COUNT 3.27 M/uL (4.00-6.00); RED CELL DISTRIBUTION WIDTH 13.4 % (11.5-14.5)
[2024-10-19 11:32] LABS: ALBUMIN 2.6 gm/dL (3.4-5.0); BILIRUBIN TOTAL 0.55 mg/dL (0.3-1.2); CALCIUM 8.4 mg/dL (8.5-10.1); CREATININE SERUM 0.48 mg/dL (0.55-1.02); GFR 141.83; GLOBULINA 3.4 G/DL (2.4-3.5); MAGNESIUM 1.9 mg/dL (1.8-2.4); PHOSPHOROUS 2.7 mg/dL (2.5-4.9); POTASSIUM 4.17 mEq/L (3.5-5.1)
[2024-10-19] MEDS ORDERED: MULTIVIT INFUSN,ADULT 4,VIT K 10 ML VIAL IV SCH (12:00)
[2024-10-19] MEDS ORDERED: Cyanocobalamin/Mecobalamin 1 TAB.SL SL NR (13:00)
[2024-10-19] MEDS ORDERED: SOD FERRIC GLUC COMPLX/SUCROSE 62.5 MG/5 ML AMPUL IV NR (13:00)
[2024-10-19] MEDS ORDERED: MEROPENEM 500 MG/VIAL VIAL IV SCH (14:00)
[2024-10-19] MEDS ORDERED: FLUCONAZOLE IN NACL,ISO-OSM 400 MG/200 ML PIGGYBAG IV NR ×2 (14:00→17:00)
[2024-10-19 15:56] VITALS: BP 110/76; O2SAT 100
[2024-10-19] MEDS ORDERED: ENOXAPARIN SODIUM 40 MG/0.4 ML SYRINGE SUBCUTANEO SCH (17:00)
[2024-10-19] MEDS ORDERED: THIAMINE HCL 100 MG/ML 2 ML VIAL IV SCH (17:00)
[2024-10-20 00:30] VITALS: BP 115/75; O2SAT 99
[2024-10-20 00:30] LABS: PH,URINE 6.5 (5.0-8.0); URINE APPEARANCE Clear; URINE BILIRRUBIN Negative (NEGATIVE); URINE BLOOD Large; URINE COLOR Yellow; URINE GLUCOSE Negative (NEGATIVE); URINE KETONE Negative (NEGATIVE); URINE LEUKOCYTE Moderate; URINE NITRATE Negative; URINE PROTEIN 30 (NEGATIVE); URINE UROBILINOGEN 0.2 E.U./dl
[2024-10-20 00:33] LABS: URINE BACTERIA 192.7 uL (0.0-1933); URINE EPITHELIAL CELLS 43.7 uL (0.0-38.8); URINE RBC 1430.6 uL (0.0-20.8); URINE WBC 173.9 uL (0.0-23.2)
[2024-10-20 00:45] LABS: URINE CAST 0.76 uL (0.0-1.40)
[2024-10-20 00:47] LABS: URINE YEAST FEW /hpf
[2024-10-20 08:23] VITALS: BP 102/68; O2SAT 98
[2024-10-20 08:47] LABS: CALCIUM 8.1 mg/dL (8.5-10.1); CHOL HDL RATIO 6.3 (0-5.0); CREATININE SERUM 0.46 mg/dL (0.55-1.02); GFR 148.97; POTASSIUM 3.7 mEq/L (3.5-5.1)
[2024-10-20] MEDS ORDERED: Cyanocobalamin/Mecobalamin 1 TAB.SL SL SCH (09:00)
[2024-10-20] MEDS ORDERED: SOD FERRIC GLUC COMPLX/SUCROSE 62.5 MG in 0.9 % SODIUM CHLORIDE 50 ML IV SCH (09:00)
[2024-10-20 17:00] VITALS: BP 119/78; O2SAT 99
[2024-10-20] MEDS ORDERED: FLUCONAZOLE IN NACL,ISO-OSM 200 MG/100 ML PIGGYBAG IV SCH (17:00)
[2024-10-21] VITALS: BP 118/75; O2SAT 99
[2024-10-21] MEDS ORDERED: MORPHINE SULFATE 4 MG/ML CARTRIDGE IV PRN (05:30)
[2024-10-21 08:00] VITALS: BP 110/74; O2SAT 97
[2024-10-21 16:15] VITALS: BP 137/87; O2SAT 98
[2024-10-21] MEDS ORDERED: METOCLOPRAMIDE HCL 5 MG/ML VIAL IV SCH (21:15)
[2024-10-22 00:30] VITALS: BP 131/79; O2SAT 100
[2024-10-22 08:00] VITALS: BP 135/87; O2SAT 100
[2024-10-22] MEDS ORDERED: ONDANSETRON HCL 2 MG/ML VIAL IV PRN (08:30)
[2024-10-22] MEDS ORDERED: PANTOPRAZOLE SODIUM 40 MG/VIAL VIAL IV SCH ×2 (09:00→21:00)
[2024-10-22 10:21] LABS: HEMATOCRIT 29.2 % (36.0-45.00); HEMOGLOBIN 9.9 g/dL (12.0-15.00); MEAN CELL VOLUME 87.1 fL (80.00-100.00); MEAN CORPUSCULAR HEMOGLOBIN 29.6 pg (27.00-32.0); PLATELET COUNT 219 K/uL (150-450); RED BLOOD COUNT 3.35 M/uL (4.00-6.00); RED CELL DISTRIBUTION WIDTH 13.1 % (11.5-14.5)
[2024-10-22 11:41] LABS: ALBUMIN 2.5 gm/dL (3.4-5.0); BILIRUBIN TOTAL 0.57 mg/dL (0.3-1.2); CALCIUM 8.9 mg/dL (8.5-10.1); CREATININE SERUM 0.37 mg/dL (0.55-1.02); GFR 191.52; GLOBULINA 3.6 G/DL (2.4-3.5); TOTAL PROTEIN 6.1 gm/dL (6.4-8.2)
[2024-10-22 11:57] LABS: POTASSIUM 2.79 mEq/L (3.5-5.1)
[2024-10-22] MEDS ORDERED: POTASSIUM PHOS,M-BASIC-D-BASIC 15 MM in 0.9 % SODIUM CHLORIDE 250 ML IV ONE (13:00)
[2024-10-22] MEDS ORDERED: POTASSIUM CHLORIDE IN WATER 100 ML IV STA (13:39)
[2024-10-22 17:00] VITALS: BP 138/89; O2SAT 97
[2024-10-22] MEDS ORDERED: PROMETHAZINE HCL 50 MG/ML AMPUL IM PRN (20:45)
[2024-10-23 00:43] VITALS: BP 116/81; O2SAT 95
[2024-10-23 08:30] VITALS: BP 145/86; O2SAT 97
[2024-10-23] MEDS ORDERED: PROMETHAZINE HCL 25 MG/ML AMPUL IV PRN (10:15)
[2024-10-23 13:25] LABS: CALCIUM 8.9 mg/dL (8.5-10.1); CREATININE SERUM 0.43 mg/dL (0.55-1.02); GFR 161.03
[2024-10-23 13:33] LABS: POTASSIUM 2.83 mEq/L (3.5-5.1)
[2024-10-23 16:00] VITALS: BP 143/89; O2SAT 99
[2024-10-23 16:17] LABS: URINE APPEARANCE Turbid; URINE BILIRRUBIN Small (NEGATIVE); URINE BLOOD Large; URINE COLOR Red; URINE GLUCOSE Negative (NEGATIVE); URINE KETONE Negative (NEGATIVE); URINE LEUKOCYTE Moderate; URINE NITRATE Negative; URINE UROBILINOGEN 0.2 E.U./dl
[2024-10-23 16:21] LABS: URINE BACTERIA 578.3 uL (0.0-1933); URINE WBC 943.7 uL (0.0-23.2)
[2024-10-23] MEDS ORDERED: POTASSIUM CHLORIDE IN WATER 40 MEQ/100 ML PIGGYBAG IV SCH (17:00)
[2024-10-23 17:44] LABS: URINE CAST 0.39 uL (0.0-1.40); URINE PROTEIN 100 (NEGATIVE); URINE RBC > 10558.9 uL (0.0-20.8)
[2024-10-23 17:46] LABS: URINE CRYSTALS NEGATIVE /HPF; URINE YEAST NEGATIVE /hpf
[2024-10-24 01:12] VITALS: BP 132/82; O2SAT 99
[2024-10-24 08:00] VITALS: BP 118/82; O2SAT 99
[2024-10-24] MEDS ORDERED: PANTOPRAZOLE SODIUM 40 MG/VIAL VIAL IV SCH (09:00)
[2024-10-24] MEDS ORDERED: ONDANSETRON HCL 2 MG/ML VIAL IV SCH (12:00)
[2024-10-24 16:44] VITALS: BP 127/85; O2SAT 96
[2024-10-25 01:01] VITALS: BP 122/86; O2SAT 96
[2024-10-25 07:11] LABS: HEMATOCRIT 30.1 % (36.0-45.00); HEMOGLOBIN 10.3 g/dL (12.0-15.00); MEAN CELL VOLUME 87.6 fL (80.00-100.00); MEAN CORPUSCULAR HEMOGLOBIN 29.9 pg (27.00-32.0); MEAN CORPUSCULAR HGB CONC 34.2 g/dl (32.0-36.0); PLATELET COUNT 236 K/uL (150-450); RED BLOOD COUNT 3.44 M/uL (4.00-6.00); RED CELL DISTRIBUTION WIDTH 13.7 % (11.5-14.5)
[2024-10-25 07:33] LABS: INR 1.13; PARTIAL THROMBOPLASTIN TIME 28.7 SECONDS (22.0-34.0); PROTHROMBIN TIME 12.2 SECONDS (9.0-11.5)
[2024-10-25 08:10] LABS: ALBUMIN 2.7 gm/dL (3.4-5.0); BILIRUBIN TOTAL 0.72 mg/dL (0.3-1.2); BILIRUBIN,CONJUGATED 0.34 mg/dL (0.0-0.2); BILIRUBIN,UNCONJUGATED 0.38 mg/dL (0.0-0.6); CALCIUM 8.6 mg/dL (8.5-10.1); CHOL HDL RATIO 5.3 (0-5.0); CREATININE SERUM 0.43 mg/dL (0.55-1.02); GFR 161.03; GLOBULINA 3.5 G/DL (2.4-3.5); PHOSPHOROUS 2.5 mg/dL (2.5-4.9); TOTAL PROTEIN 6.2 gm/dL (6.4-8.2)
[2024-10-25 08:43] VITALS: BP 132/92; O2SAT 99
[2024-10-25 09:11] LABS: MAGNESIUM 1.3 mg/dL (1.8-2.4); POTASSIUM 2.95 mEq/L (3.5-5.1)
[2024-10-25] MEDS ORDERED: MAGNESIUM SULFATE IN WATER 50 ML IV NR (10:15)
[2024-10-25] MEDS ORDERED: POTASSIUM CHLORIDE IN WATER 40 MEQ/100 ML PIGGYBAG IV NR (11:15)
[2024-10-25 12:00] VITALS: BP 141/89; O2SAT 97
[2024-10-25] MEDS ORDERED: POTASSIUM CHLORIDE IN 0.9%NACL 1,000 ML IV SCH (13:45)
[2024-10-25 16:51] VITALS: BP 137/87; O2SAT 98
[2024-10-26] VITALS: BP 110/77; O2SAT 96
[2024-10-26 08:30] VITALS: BP 118/69; O2SAT 99
[2024-10-26 09:02] LABS: ALBUMIN 2.8 gm/dL (3.4-5.0); BILIRUBIN TOTAL 0.96 mg/dL (0.3-1.2); BILIRUBIN,CONJUGATED 0.42 mg/dL (0.0-0.2); BILIRUBIN,UNCONJUGATED 0.54 mg/dL (0.0-0.6); CALCIUM 8.5 mg/dL (8.5-10.1); CREATININE SERUM 0.52 mg/dL (0.55-1.02); GFR 129.32; MAGNESIUM 1.7 mg/dL (1.8-2.4); PHOSPHOROUS 2.6 mg/dL (2.5-4.9); POTASSIUM 3.15 mEq/L (3.5-5.1); TOTAL PROTEIN 6.3 gm/dL (6.4-8.2)
[2024-10-26 09:04] LABS: C-REACTIVE PROTEIN 3.66 MG/DL (0.00-0.29)
[2024-10-26] MEDS ORDERED: POTASSIUM CHLORIDE 20MEQ/100ML H2O PB IV NR (09:30)
[2024-10-26] MEDS ORDERED: MAGNESIUM SULFATE IN WATER 50 ML IV NR (09:30)
[2024-10-26 16:00] VITALS: BP 118/73; O2SAT 99
[2024-10-27 02:18] VITALS: BP 109/74; O2SAT 100
[2024-10-27 08:00] VITALS: BP 103/72; O2SAT 98
[2024-10-27 09:51] LABS: CALCIUM 8.5 mg/dL (8.5-10.1); CREATININE SERUM 0.47 mg/dL (0.55-1.02); GFR 145.32; MAGNESIUM 2.2 mg/dL (1.8-2.4); PHOSPHOROUS 2.9 mg/dL (2.5-4.9); POTASSIUM 3.65 mEq/L (3.5-5.1)
[2024-10-27] MEDS ORDERED: METRONIDAZOLE/SODIUM CHLORIDE 500 MG/100 ML PIGGYBACK IV ONE (18:00)
[2024-10-27] MEDS ORDERED: CEFTRIAXONE SODIUM 2,000 MG VIAL IV ONE (18:00)
[2024-10-27] MEDS ORDERED: LIDOCAINE HCL 2%/EPINEPHRINE 20ML VIAL IJ ONE (18:15)
[2024-10-27] MEDS ORDERED: BUPIVACAINE HCL 30 ML VIAL IJ ONE (18:15)
[2024-10-27 20:50] VITALS: BP 123/78; O2SAT 99
[2024-10-28 01:05] VITALS: BP 98/60; O2SAT 100
[2024-10-28 08:00] VITALS: BP 111/70; O2SAT 97
[2024-10-28 13:15] LABS: HEMOGLOBIN 9.7 g/dL (12.0-15.00); MEAN CORPUSCULAR HEMOGLOBIN 30.3 pg (27.00-32.0); MEAN CORPUSCULAR HGB CONC 34.8 g/dl (32.0-36.0); PLATELET COUNT 211 K/uL (150-450); RED BLOOD COUNT 3.21 M/uL (4.00-6.00); RED CELL DISTRIBUTION WIDTH 14.8 % (11.5-14.5)
[2024-10-28 14:17] LABS: CALCIUM 8.4 mg/dL (8.5-10.1); CREATININE SERUM 0.38 mg/dL (0.55-1.02); GFR 185.72; MAGNESIUM 1.7 mg/dL (1.8-2.4); PHOSPHOROUS 2.4 mg/dL (2.5-4.9); POTASSIUM 3.21 mEq/L (3.5-5.1)
[2024-10-28 17:10] VITALS: BP 133/80; O2SAT 98
[2024-10-29] VITALS: BP 110/72; O2SAT 98
[2024-10-29 08:00] VITALS: BP 116/75; O2SAT 99
[2024-10-29] MEDS ORDERED: POTASSIUM CHLORIDE 20MEQ/100ML H2O PB IV NR ×2 (08:30→11:00)
[2024-10-29] MEDS ORDERED: SOD FERRIC GLUC COMPLX/SUCROSE 62.5 MG in 0.9 % SODIUM CHLORIDE 50 ML IV SCH (09:00)
[2024-10-29] MEDS ORDERED: MAGNESIUM SULFATE IN WATER 50 ML IV NR (09:00)
[2024-10-29 17:06] VITALS: BP 129/69; O2SAT 97
[2024-10-30 01:01] VITALS: BP 120/73; O2SAT 100
[2024-10-30] MEDS ORDERED: INTESTINEX680 M1 PO (13:48)
[2024-10-30] MEDS ORDERED: HYOSCYAMINE0.125 M1 SL (13:48)
[2024-10-30] MEDS ORDERED: FLUCONAZOLE200 MG PO (13:49)
== END 2024-10-30 15:41 | disposition home or self-care (01) | DRG 908 ==
LOC: ER 08:36 → SEC-K 14:23 → SURH 14:23
PROVIDERS: General Practice; Internal Medicine Geriatric Medicine; Internal Medicine Infectious Disease; Specialist; Surgery; ADMIT Colon & Rectal Surgery; ATTEND Colon & Rectal Surgery
PROC: 02HV33Z Insertion of Infusion Device into Superior Vena Cava, Percutaneous Approach (ICD-10-PCS; 2024-10-18)
PROC: 3E0436Z Introduction of Nutritional Substance into Central Vein, Percutaneous Approach (ICD-10-PCS; 2024-10-18)
PROC: BW21YZZ Computerized Tomography (CT Scan) of Abdomen and Pelvis using Other Contrast (ICD-10-PCS; 2024-10-18)
PROC: 0D9670Z Drainage of Stomach with Drainage Device, Via Natural or Artificial Opening (ICD-10-PCS; 2024-10-23)
PROC: BF4CZZZ Ultrasonography of Hepatobiliary System, All (ICD-10-PCS; 2024-10-25)
PROC: 0D1L4Z4 Bypass Transverse Colon to Cutaneous, Percutaneous Endoscopic Approach (ICD-10-PCS; principal; 2024-10-27 13:00)
DX: T81.320A Disruption or dehiscence of gastrointestinal tract anastomosis, repair, or closure, initial encounter (principal); K56.600 Partial intestinal obstruction, unspecified as to cause; N82.3 Fistula of vagina to large intestine; K56.7 Ileus, unspecified; N13.30 Unspecified hydronephrosis; N39.0 Urinary tract infection, site not specified; D64.89 Other specified anemias; E87.6 Hypokalemia; E83.42 Hypomagnesemia; R00.0 Tachycardia, unspecified; R74.01 Elevation of levels of liver transaminase levels; Z43.3 Encounter for attention to colostomy

== ENCOUNTER 2024-11-01 16:30 | Emergency (ER) | payer OTHER ==
[~2024-11-01] VITALS: Ht 149.9 cm; Wt 57.6 kg
[~2024-11-01 16:30] MED LIST changes: +FLUCONAZOLE200 MG PO; +HYOSCYAMINE0.125 M1 SL; +INTESTINEX680 M1 PO
== END 2024-11-01 18:05 | disposition home or self-care (01) ==
LOC: ER 16:32
DX: Z43.2 Encounter for attention to ileostomy (principal)

== ENCOUNTER 2024-11-03 18:54 | Outpatient (CLI) | payer OTHER ==
[2024-11-03 19:18] LABS: PH,URINE 5.5 (5.0-8.0); URINE APPEARANCE Turbid; URINE BILIRRUBIN Negative (NEGATIVE); URINE BLOOD Large; URINE COLOR Dark Yellow; URINE GLUCOSE Negative (NEGATIVE); URINE KETONE Negative (NEGATIVE); URINE LEUKOCYTE Large; URINE NITRATE Negative
[2024-11-03 19:21] LABS: URINE EPITHELIAL CELLS 10.7 uL (0.0-38.8); URINE RBC 3774.9 uL (0.0-20.8)
[2024-11-03 19:52] LABS: URINE BACTERIA > 9821.5 uL (0.0-1933); URINE CAST 0.85 uL (0.0-1.40); URINE PROTEIN 300 (NEGATIVE); URINE WBC > 5548.3 uL (0.0-23.2)
[2024-11-03 19:56] LABS: URINE YEAST NEGATIVE /hpf
== END 2024-11-03 23:00 | disposition home or self-care (01) ==
LOC: LAB 18:54
PROVIDERS: ATTEND Urology
DX: N13.1 Hydronephrosis with ureteral stricture, not elsewhere classified (principal); N30.00 Acute cystitis without hematuria

== ENCOUNTER 2024-11-08 13:19 | Inpatient (IN) | payer OTHER ==
[~2024-11-08] VITALS: Ht 149.9 cm; Wt 57.6 kg
--- NOTE | 2024-11-08 14:28 | NUR ---
PACIENTE ALERTA Y ORIENTADA X 3. REFIERE 3 DIAZ CON ARDOR AL ORINAR EN TRATA- MIENTO POR INFECCION DE ORINA Y REFIERE COURTNEY COMENZO CON DOLOR PELVICO. PACIENTE EN TRATAMIENTO CON DR LIPSCOMB CON NICOLLE ILIOSTOMIA TEMPORERA HACEN 2 SEMANAS.
[2024-11-08] MEDS ORDERED: CIPRO500 MG (14:31)
[2024-11-08] MEDS ORDERED: FUSION PLUS CA1 EACH (14:31)
[2024-11-08] MEDS ORDERED: ONDANSETRON HCL 2 MG/ML VIAL IV ONE (15:30)
[2024-11-08] MEDS ORDERED: 0.9 % SODIUM CHLORIDE 500 ML IV ONE (15:45)
[2024-11-08 16:06] LABS: HEMATOCRIT 33.8 % (36.0-45.00); HEMOGLOBIN 11.2 g/dL (12.0-15.00); MEAN CELL VOLUME 89.6 fL (80.00-100.00); MEAN CORPUSCULAR HEMOGLOBIN 29.7 pg (27.00-32.0); MEAN CORPUSCULAR HGB CONC 33.2 g/dl (32.0-36.0); PLATELET COUNT 267 K/uL (150-450); RED BLOOD COUNT 3.78 M/uL (4.00-6.00)
[2024-11-08] MEDS ORDERED: MEPERIDINE HCL/PF 25 MG/ML VIAL IM ONE (16:15)
--- NOTE | 2024-11-08 16:17 | NUR ---
SE ORIENTA PTE SOBRE TX A SEGUIR, LA MISMA REFIERE ENTENDER. SE FAY MUESTRA DE LAB, SE CANALIZA Y SE ADMINISTRA MED NATALY ORDEN MEDICA
[2024-11-08 16:35] LABS: ALBUMIN 3.2 gm/dL (3.4-5.0); BILIRUBIN TOTAL 0.56 mg/dL (0.3-1.2); CALCIUM 9.4 mg/dL (8.5-10.1); CREATININE SERUM 0.6 mg/dL (0.55-1.02); GFR 109.63; POTASSIUM 3.89 mEq/L (3.5-5.1); TOTAL PROTEIN 7.2 gm/dL (6.4-8.2)
[2024-11-08 17:04] LABS: PH,URINE 5.5 (5.0-8.0); URINE APPEARANCE Turbid; URINE BILIRRUBIN Negative (NEGATIVE); URINE BLOOD Large; URINE COLOR Dark Yellow; URINE GLUCOSE Negative (NEGATIVE); URINE KETONE Trace (NEGATIVE); URINE LEUKOCYTE Moderate; URINE NITRATE Negative; URINE PROTEIN >=1000 (NEGATIVE)
[2024-11-08 17:05] LABS: URINE BACTERIA 991.4 uL (0.0-1933); URINE CAST 2.91 uL (0.0-1.40); URINE EPITHELIAL CELLS 64.1 uL (0.0-38.8)
[2024-11-08 17:31] LABS: URINE CRYSTALS MODERATE /HPF; URINE WBC > 5548.3 uL (0.0-23.2)
[2024-11-08] MEDS ORDERED: MEROPENEM 1,000 MG VIAL IV ONE (18:30)
[2024-11-08] MEDS ORDERED: ACETAMINOPHEN 500 MG GEL..CAP PO PRN (20:45)
[2024-11-08] MEDS ORDERED: ONDANSETRON HCL 4 MG in 0.9 % SODIUM CHLORIDE 50 ML IV PRN (20:45)
[2024-11-08] MEDS ORDERED: 0.9 % SODIUM CHLORIDE 1,000 ML IV SCH (20:45)
[2024-11-09] MEDS ORDERED: MEROPENEM 1,000 MG in 0.9 % SODIUM CHLORIDE 100 ML IV SCH (02:30)
[2024-11-09 02:42] LABS: INR 1.07; PARTIAL THROMBOPLASTIN TIME 27.1 SECONDS (22.0-34.0); PROTHROMBIN TIME 11.6 SECONDS (9.0-11.5)
[2024-11-09 06:30] VITALS: BP 100/62; O2SAT 100
[2024-11-09 08:17] VITALS: BP 96/67; O2SAT 97
[2024-11-09] MEDS ORDERED: FAMOTIDINE/PF 20 MG in 0.9 % SODIUM CHLORIDE 8 ML IV PUSH SCH (09:00)
[2024-11-09] MEDS ORDERED: ENOXAPARIN SODIUM 40 MG/0.4 ML SYRINGE SUBCUTANEO SCH (09:00)
[2024-11-09] MEDS ORDERED: MEROPENEM 500 MG in 0.9 % SODIUM CHLORIDE 50 ML IV SCH (12:00)
[2024-11-09 17:54] VITALS: BP 94/67; O2SAT 96
[2024-11-10 02:14] VITALS: BP 100/69; O2SAT 96
[2024-11-10 08:46] VITALS: BP 97/60; O2SAT 96
[2024-11-10 16:49] LABS: PH,URINE 6.5 (5.0-8.0); URINE APPEARANCE Turbid; URINE BILIRRUBIN Negative (NEGATIVE); URINE BLOOD Large; URINE COLOR Yellow; URINE GLUCOSE Negative (NEGATIVE); URINE KETONE Negative (NEGATIVE); URINE LEUKOCYTE Large; URINE NITRATE Negative; URINE UROBILINOGEN 0.2 E.U./dl
[2024-11-10 16:52] LABS: URINE BACTERIA 469.9 uL (0.0-1933); URINE CAST 2.06 uL (0.0-1.40); URINE EPITHELIAL CELLS 20.8 uL (0.0-38.8); URINE RBC 1537.2 uL (0.0-20.8); URINE WBC 4696.1 uL (0.0-23.2)
[2024-11-10 17:03] LABS: URINE PROTEIN 100 (NEGATIVE)
[2024-11-10 20:02] VITALS: BP 96/69
[2024-11-11 02:52] VITALS: BP 105/67; O2SAT 99
[2024-11-11 09:05] VITALS: BP 109/66; O2SAT 97
[2024-11-11] MEDS ORDERED: FLUCONAZOLE IN NACL,ISO-OSM 2 MG/ML ML IV SCH (17:00)
[2024-11-11] MEDS ORDERED: FLUCONAZOLE IN NACL,ISO-OSM 200 MG/100 ML PIGGYBAG IV NR (17:00)
[2024-11-11 18:25] VITALS: BP 112/75; O2SAT 98
[2024-11-12 02:57] VITALS: BP 102/70; O2SAT 97
[2024-11-12 06:07] LABS: HEMATOCRIT 30.5 % (36.0-45.00); HEMOGLOBIN 10.3 g/dL (12.0-15.00); MEAN CORPUSCULAR HGB CONC 33.7 g/dl (32.0-36.0); PLATELET COUNT 202 K/uL (150-450); RED BLOOD COUNT 3.43 M/uL (4.00-6.00); RED CELL DISTRIBUTION WIDTH 14.5 % (11.5-14.5)
[2024-11-12 06:39] LABS: ALBUMIN 2.8 gm/dL (3.4-5.0); BILIRUBIN TOTAL 0.26 mg/dL (0.3-1.2); CALCIUM 8.6 mg/dL (8.5-10.1); CREATININE SERUM 0.53 mg/dL (0.55-1.02); GFR 126.51; GLOBULINA 3.1 G/DL (2.4-3.5); MAGNESIUM 1.9 mg/dL (1.8-2.4); PHOSPHOROUS 3.4 mg/dL (2.5-4.9); POTASSIUM 3.69 mEq/L (3.5-5.1); TOTAL PROTEIN 5.9 gm/dL (6.4-8.2)
[2024-11-12 06:54] LABS: C-REACTIVE PROTEIN 0.49 MG/DL (0.00-0.29)
[2024-11-12 10:22] VITALS: BP 110/76; O2SAT 98
[2024-11-12] MEDS ORDERED: FLUCONAZOLE IN NACL,ISO-OSM 50 ML IV SCH (17:00)
[2024-11-12] MEDS ORDERED: FLUCONAZOLE IN NACL,ISO-OSM 2 MG/ML ML IV SCH (17:00)
[2024-11-12 17:59] VITALS: BP 94/64
[2024-11-12] MEDS ORDERED: MORPHINE SULFATE 4 MG/ML VIAL IV ONE (20:10)
[2024-11-12 21:49] VITALS: BP 113/75; O2SAT 98
[2024-11-13 02:23] VITALS: BP 124/73; O2SAT 98
[2024-11-13 09:41] VITALS: BP 103/67; O2SAT 97
[2024-11-13 18:49] VITALS: BP 121/85; O2SAT 100
[2024-11-13] MEDS ORDERED: MORPHINE SULFATE 4 MG/ML CARTRIDGE IV PRN (21:45)
[2024-11-14 01:51] VITALS: BP 93/57; O2SAT 97
[2024-11-14 09:00] VITALS: BP 109/67; O2SAT 98
[2024-11-14 16:48] VITALS: BP 110/77; O2SAT 98
[2024-11-15 01:17] VITALS: BP 101/61; O2SAT 96
[2024-11-15 06:44] LABS: HEMATOCRIT 28.1 % (36.0-45.00); HEMOGLOBIN 9.8 g/dL (12.0-15.00); MEAN CORPUSCULAR HEMOGLOBIN 30.5 pg (27.00-32.0); MEAN CORPUSCULAR HGB CONC 35.1 g/dl (32.0-36.0); PLATELET COUNT 189 K/uL (150-450); RED BLOOD COUNT 3.23 M/uL (4.00-6.00); RED CELL DISTRIBUTION WIDTH 14.9 % (11.5-14.5)
[2024-11-15 07:30] LABS: ALBUMIN 2.7 gm/dL (3.4-5.0); BILIRUBIN TOTAL 0.35 mg/dL (0.3-1.2); CALCIUM 8.4 mg/dL (8.5-10.1); CREATININE SERUM 0.38 mg/dL (0.55-1.02); GFR 185.72; GLOBULINA 2.9 G/DL (2.4-3.5); POTASSIUM 3.48 mEq/L (3.5-5.1); TOTAL PROTEIN 5.6 gm/dL (6.4-8.2)
[2024-11-15 08:56] LABS: URINE APPEARANCE Clear; URINE BILIRRUBIN Negative (NEGATIVE); URINE BLOOD Large; URINE COLOR Yellow; URINE GLUCOSE Negative (NEGATIVE); URINE KETONE Negative (NEGATIVE); URINE LEUKOCYTE Trace; URINE NITRATE Negative; URINE PROTEIN 30 (NEGATIVE); URINE UROBILINOGEN 0.2 E.U./dl
[2024-11-15 08:58] VITALS: BP 106/68; O2SAT 97
[2024-11-15 09:01] LABS: URINE BACTERIA 36.7 uL (0.0-1933); URINE EPITHELIAL CELLS 8.7 uL (0.0-38.8); URINE RBC 584.4 uL (0.0-20.8); URINE WBC 122.8 uL (0.0-23.2)
[2024-11-15 09:26] LABS: URINE CAST 0.29 uL (0.0-1.40)
[2024-11-15] MEDS ORDERED: POTASSIUM CHLORIDE 20MEQ/100ML H2O PB IV NR (10:45)
[2024-11-15 17:52] VITALS: BP 106/72; O2SAT 96
[2024-11-16 00:55] VITALS: BP 114/75; O2SAT 99
[2024-11-16 09:53] VITALS: BP 116/67; O2SAT 99
[2024-11-16 17:22] VITALS: BP 110/72; O2SAT 97
[2024-11-17 01:24] VITALS: BP 122/83; O2SAT 98
[2024-11-17 09:19] VITALS: BP 97/59
[2024-11-17] MEDS ORDERED: FLUCONAZOLE100 MG PO (10:21)
[2024-11-17] MEDS ORDERED: FUSION PLUS CA1 EACH PO (10:22)
[2024-11-17] MEDS ORDERED: INTESTINEX680 M1 PO (10:22)
[2024-11-17] MEDS ORDERED: FAMOTIDINE20 MG PO (10:23)
[2024-11-17] MEDS ORDERED: FLUCONAZOLE IN NACL,ISO-OSM 50 ML IV STA (10:24)
== END 2024-11-17 13:42 | disposition home or self-care (01) | DRG 660 ==
LOC: ER 13:21 → MEDJ 22:06
PROVIDERS: Emergency Medicine; General Practice; Internal Medicine; Internal Medicine Infectious Disease; ADMIT Internal Medicine Geriatric Medicine; ATTEND Internal Medicine Geriatric Medicine
PROC: BW21ZZZ Computerized Tomography (CT Scan) of Abdomen and Pelvis (ICD-10-PCS; 2024-11-08)
PROC: 0T768DZ Dilation of Right Ureter with Intraluminal Device, Via Natural or Artificial Opening Endoscopic (ICD-10-PCS; principal; 2024-11-14)
PROC: 0TP98DZ Removal of Intraluminal Device from Ureter, Via Natural or Artificial Opening Endoscopic (ICD-10-PCS; 2024-11-14)
DX: N39.0 Urinary tract infection, site not specified (principal); B37.89 Other sites of candidiasis; N35.82 Other urethral stricture, female; B96.89 Other specified bacterial agents as the cause of diseases classified elsewhere; B96.20 Unspecified Escherichia coli [E. coli] as the cause of diseases classified elsewhere; N12 Tubulo-interstitial nephritis, not specified as acute or chronic

== ENCOUNTER 2025-04-18 16:03 | Inpatient (IN) | payer OTHER ==
[~2025-04-18] VITALS: Ht 147.3 cm; Wt 56.7 kg
[~2025-04-18 16:03] MED LIST changes: +CIPRO500 MG; +FAMOTIDINE20 MG PO; +FLUCONAZOLE100 MG PO; +FUSION PLUS CA1 EACH; +FUSION PLUS CA1 EACH PO
--- NOTE | 2025-04-18 17:08 | NUR ---
SE RECIBE PTE ALERTA, ORIENTADA X3 Y AMBULANDO. PTE REFIERE OBDULIO DOLOR ABDOMINAL Y EN ESPALDA BAJA, NAUSEAS Y VOMITOS. PTE DE DR GUZMAN Y ANDRE DEISI POR ILEOSTOMIA EN DICIEMBRE.
[2025-04-18] MEDS ORDERED: ONDANSETRON HCL 2 MG/ML VIAL ONE (17:27)
[2025-04-18] MEDS ORDERED: 0.9 % SODIUM CHLORIDE 1,000 ML IV SCH (17:30)
[2025-04-18] MEDS ORDERED: ONDANSETRON HCL 2 MG/ML VIAL IV ONE (17:30)
[2025-04-18] MEDS ORDERED: MORPHINE SULFATE 4 MG/ML VIAL IV ONE (17:30)
--- NOTE | 2025-04-18 17:38 | NUR ---
SE EDUCA A PTE SOBRE [place] MEDICO, SE ISAIAH MUESTRAS DE LABORATORIO UTILIZANDO MEDIDAS ASEPTICAS. SE COLOCA H/L FARHEEN DE EDEMA. SE ADMINISTRAN MEDICAMENTOS NATALY ORDEN MEDICA, PTE TOLERA LOS MISMOS. SE NOTIFICA ESTUDIO DE CT PENDIENTE A REALIZAR.
[2025-04-18 17:42] LABS: BASO % 0.3 % (0.1-1.2); EOS # 0.08 (0.04-0.54); EOS % 0.5 % (0.7-7.0); HEMATOCRIT 36.4 % (34.1-44.9); HEMOGLOBIN 12.3 g/dL (11.2-15.7); LYMPH # 1.36 (1.18-3.74); LYMPH % 9.2 % (19.3-53.1); MEAN CORPUSCULAR HEMOGLOBIN 29.4 pg (25.6-32.2); MONO # 1.05 (0.24-0.82); MONO % 7.1 % (4.7-12.5); NEUT # 12.24 (1.56-6.13); NEUT % 82.6 % (34.0-71.1); PLATELET COUNT 233 K/uL (163-369); RED BLOOD COUNT 4.18 M/uL (3.93-5.22)
[2025-04-18 18:11] LABS: ALBUMIN 3.9 gm/dL (3.4-5.0); BILIRUBIN TOTAL 0.38 mg/dL (0.3-1.2); CALCIUM 9.3 mg/dL (8.5-10.1); CREATININE SERUM 1.03 mg/dL (0.55-1.02); GFR 58.48; GLOBULINA 4.7 G/DL (2.4-3.5); POTASSIUM 3.87 mEq/L (3.5-5.1); TOTAL PROTEIN 8.6 gm/dL (6.4-8.2)
[2025-04-18] MEDS ORDERED: KETOROLAC TROMETHAMINE 30 MG VIAL ONE (18:52)
[2025-04-18] MEDS ORDERED: KETOROLAC TROMETHAMINE 30 MG VIAL IV ONE (19:00)
[2025-04-18] MEDS ORDERED: SODIUM CHLORIDE 0.45 % 1,000 ML IV SCH (20:30)
[2025-04-18] MEDS ORDERED: MORPHINE SULFATE 4 MG/ML VIAL IV PRN (20:45)
[2025-04-18] MEDS ORDERED: ACETAMINOPHEN 500 MG GEL..CAP PO PRN (20:45)
[2025-04-18] MEDS ORDERED: ONDANSETRON HCL 2 MG/ML VIAL IV PRN (20:45)
[2025-04-18] MEDS ORDERED: FAMOTIDINE/PF 20 MG/2 ML VIAL IV SCH (21:00)
[2025-04-18] MEDS ORDERED: MEROPENEM 500 MG/VIAL VIAL IV SCH (21:00)
[2025-04-18 21:53] LABS: PH,URINE 5.5 (5.0-8.0); URINE APPEARANCE Cloudy; URINE BILIRRUBIN Negative (NEGATIVE); URINE BLOOD Moderate; URINE COLOR Yellow; URINE GLUCOSE Negative (NEGATIVE); URINE KETONE Negative (NEGATIVE); URINE LEUKOCYTE Large; URINE NITRATE Negative; URINE UROBILINOGEN 0.2 E.U./dl
[2025-04-18 21:57] LABS: URINE BACTERIA 335.3 uL (0.0-1933); URINE EPITHELIAL CELLS 20.1 uL (0.0-38.8); URINE RBC 32.5 uL (0.0-20.8); URINE WBC 1194.9 uL (0.0-23.2)
[2025-04-18 22:14] LABS: URINE CAST 1.17 uL (0.0-1.40); URINE PROTEIN 100 (NEGATIVE)
[2025-04-19 01:13] VITALS: BP 122/80; O2SAT 99
[2025-04-19 01:40] VITALS: BP 122/80
[2025-04-19 03:35] VITALS: BP 125/78; O2SAT 99
[2025-04-19 06:30] LABS: BASO % 0.2 % (0.1-1.2); EOS # 0.01 (0.04-0.54); EOS % 0.1 % (0.7-7.0); HEMATOCRIT 33.1 % (34.1-44.9); HEMOGLOBIN 11.2 g/dL (11.2-15.7); LYMPH # 0.87 (1.18-3.74); LYMPH % 6.1 % (19.3-53.1); MEAN CORPUSCULAR HEMOGLOBIN 29.9 pg (25.6-32.2); MONO # 0.89 (0.24-0.82); MONO % 6.3 % (4.7-12.5); NEUT % 86.7 % (34.0-71.1); PLATELET COUNT 205 K/uL (163-369); RED BLOOD COUNT 3.74 M/uL (3.93-5.22); RED CELL DISTRIBUTION WIDTH 12.1 % (11.6-14.4)
[2025-04-19 06:51] LABS: ERYTHROCYTE SEDIMENTATION RATE 59 mm/hr (0-20)
[2025-04-19 07:34] LABS: ALBUMIN 3.3 gm/dL (3.4-5.0); BILIRUBIN TOTAL 0.85 mg/dL (0.3-1.2); CALCIUM 8.6 mg/dL (8.5-10.1); CREATININE SERUM 1.03 mg/dL (0.55-1.02); GFR 58.48; GLOBULINA 3.7 G/DL (2.4-3.5); POTASSIUM 4.18 mEq/L (3.5-5.1)
[2025-04-19 07:36] LABS: C-REACTIVE PROTEIN 11.3 MG/DL (0.00-0.29)
[2025-04-19 08:00] VITALS: BP 112/74; O2SAT 98
[2025-04-19] MEDS ORDERED: ENOXAPARIN SODIUM 40 MG/0.4 ML SYRINGE SUBCUTANEO SCH (09:00)
[2025-04-19] MEDS ORDERED: MEROPENEM 500 MG/VIAL VIAL IV SCH (12:00)
[2025-04-19 16:00] VITALS: BP 108/67; O2SAT 98
[2025-04-19] MEDS ORDERED: fentaNYL CITRATE 50 MCG/ML AMPUL IV PUSH ONE ×2 (17:45→18:45)
[2025-04-19] MEDS ORDERED: MIDAZOLAM HCL 2 MG/2 ML VIAL IV PUSH ONE (17:45)
[2025-04-20 01:00] VITALS: BP 106/60; O2SAT 99
[2025-04-20 08:00] VITALS: BP 117/70; O2SAT 98
[2025-04-20 08:48] LABS: BASO % 0.2 % (0.1-1.2); EOS # 0.06 (0.04-0.54); EOS % 0.5 % (0.7-7.0); HEMATOCRIT 30.4 % (34.1-44.9); LYMPH # 1.47 (1.18-3.74); LYMPH % 12.8 % (19.3-53.1); MEAN CORPUSCULAR HEMOGLOBIN 29.6 pg (25.6-32.2); MONO # 0.92 (0.24-0.82); NEUT # 8.95 (1.56-6.13); NEUT % 78.2 % (34.0-71.1); PLATELET COUNT 155 K/uL (163-369); RED BLOOD COUNT 3.38 M/uL (3.93-5.22); RED CELL DISTRIBUTION WIDTH 12.5 % (11.6-14.4)
[2025-04-20 09:10] LABS: INR 1.09; PROTHROMBIN TIME 11.8 SECONDS (9.0-11.5)
[2025-04-20 09:32] LABS: CALCIUM 8.3 mg/dL (8.5-10.1); CREATININE SERUM 0.77 mg/dL (0.55-1.02); GFR 81.82; MAGNESIUM 1.9 mg/dL (1.8-2.4); PHOSPHOROUS 2.6 mg/dL (2.5-4.9); POTASSIUM 4.04 mEq/L (3.5-5.1)
[2025-04-20] MEDS ORDERED: VANCOMYCIN HCL 1,000 MG VIAL IV SCH (17:00)
[2025-04-20 17:39] VITALS: BP 118/80; O2SAT 100
[2025-04-20] MEDS ORDERED: VANCOMYCIN HCL 1,000 MG VIAL ONE ×2 (19:31→22:29)
[2025-04-21 01:14] VITALS: BP 120/73; O2SAT 99
[2025-04-21] MEDS ORDERED: MORPHINE SULFATE 4 MG/ML VIAL IV PRN (02:30)
[2025-04-21 07:05] LABS: BASO % 0.1 % (0.1-1.2); EOS # 0.03 (0.04-0.54); EOS % 0.3 % (0.7-7.0); LYMPH # 1.07 (1.18-3.74); LYMPH % 11.1 % (19.3-53.1); MEAN CORPUSCULAR HEMOGLOBIN 29.5 pg (25.6-32.2); MONO # 0.62 (0.24-0.82); MONO % 6.4 % (4.7-12.5); NEUT # 7.89 (1.56-6.13); NEUT % 81.8 % (34.0-71.1); PLATELET COUNT 151 K/uL (163-369); RED BLOOD COUNT 2.88 M/uL (3.93-5.22); RED CELL DISTRIBUTION WIDTH 12.1 % (11.6-14.4)
[2025-04-21 07:35] LABS: CALCIUM 8.3 mg/dL (8.5-10.1); CREATININE SERUM 0.87 mg/dL (0.55-1.02); GFR 71.06; MAGNESIUM 2.1 mg/dL (1.8-2.4); PHOSPHOROUS 2.5 mg/dL (2.5-4.9); POTASSIUM 3.68 mEq/L (3.5-5.1)
[2025-04-21 07:49] LABS: HEMATOCRIT 25.6 % (34.1-44.9); HEMOGLOBIN 8.5 g/dL (11.2-15.7)
[2025-04-21 08:00] VITALS: BP 121/85; O2SAT 99
[2025-04-21] MEDS ORDERED: VANCOMYCIN HCL 1,000 MG VIAL ONE (14:21)
[2025-04-21 15:35] LABS: BASO % 0.1 % (0.1-1.2); EOS # 0.02 (0.04-0.54); EOS % 0.2 % (0.7-7.0); LYMPH # 1.08 (1.18-3.74); MEAN CORPUSCULAR HEMOGLOBIN 29.5 pg (25.6-32.2); MONO % 5.5 % (4.7-12.5); PLATELET COUNT 158 K/uL (163-369); RED BLOOD COUNT 2.98 M/uL (3.93-5.22); RED CELL DISTRIBUTION WIDTH 12.1 % (11.6-14.4)
[2025-04-21 15:51] LABS: HEMATOCRIT 26.2 % (34.1-44.9); HEMOGLOBIN 8.8 g/dL (11.2-15.7)
[2025-04-21 16:32] VITALS: BP 127/81; O2SAT 98
[2025-04-21] MEDS ORDERED: FUROsemide 20 MG/2 ML VIAL IV SCH (21:30)
[2025-04-22 00:44] VITALS: BP 123/83; O2SAT 97
[2025-04-22 11:15] LABS: BASO % 0.1 % (0.1-1.2); EOS # 0.05 (0.04-0.54); EOS % 0.7 % (0.7-7.0); HEMATOCRIT 30.9 % (34.1-44.9); HEMOGLOBIN 10.5 g/dL (11.2-15.7); LYMPH # 1.04 (1.18-3.74); LYMPH % 15.2 % (19.3-53.1); MEAN CORPUSCULAR HEMOGLOBIN 29.7 pg (25.6-32.2); MONO # 0.47 (0.24-0.82); MONO % 6.9 % (4.7-12.5); NEUT # 5.23 (1.56-6.13); NEUT % 76.4 % (34.0-71.1); PLATELET COUNT 215 K/uL (163-369); RED BLOOD COUNT 3.54 M/uL (3.93-5.22); RED CELL DISTRIBUTION WIDTH 12.5 % (11.6-14.4)
[2025-04-22] MEDS ORDERED: CHLORHEXIDINE GLUCONATE 120 ML BOTTLE TOP ONE (12:26)
[2025-04-22] MEDS ORDERED: IOVERSOL 320 MG/ML - 50 ML VIAL IV ONE (12:27)
[2025-04-22] MEDS ORDERED: VANCOMYCIN HCL 1,000 MG VIAL ONE ×2 (14:27→22:48)
[2025-04-22] MEDS ORDERED: MORPHINE SULFATE 2 MG/ML CARTRIDGE IV ONE (16:05)
[2025-04-22 17:10] VITALS: BP 137/84; O2SAT 100
[2025-04-23 00:43] VITALS: BP 126/74; O2SAT 100
[2025-04-23 08:25] VITALS: BP 116/76; O2SAT 95
[2025-04-23 08:36] LABS: BASO % 0.1 % (0.1-1.2); EOS # 0.31 (0.04-0.54); EOS % 4.5 % (0.7-7.0); HEMATOCRIT 29.6 % (34.1-44.9); MEAN CORPUSCULAR HEMOGLOBIN 29.3 pg (25.6-32.2); MONO # 0.58 (0.24-0.82); MONO % 8.4 % (4.7-12.5); NEUT # 4.84 (1.56-6.13); NEUT % 70.6 % (34.0-71.1); PLATELET COUNT 184 K/uL (163-369); RED BLOOD COUNT 3.41 M/uL (3.93-5.22); RED CELL DISTRIBUTION WIDTH 12.5 % (11.6-14.4)
[2025-04-23 09:07] LABS: CALCIUM 8.9 mg/dL (8.5-10.1); CREATININE SERUM 0.57 mg/dL (0.55-1.02); GFR 115.76; MAGNESIUM 1.9 mg/dL (1.8-2.4); PHOSPHOROUS 2.9 mg/dL (2.5-4.9); POTASSIUM 3.26 mEq/L (3.5-5.1)
[2025-04-23] MEDS ORDERED: POTASSIUM CHLORIDE 20MEQ/100ML H2O PB IV NR (12:30)
[2025-04-23] MEDS ORDERED: VANCOMYCIN HCL 1,000 MG VIAL ONE ×2 (14:31→22:50)
[2025-04-23 16:38] VITALS: BP 125/77; O2SAT 97
[2025-04-23] MEDS ORDERED: MORPHINE SULFATE 4 MG/ML VIAL IV PRN (21:15)
[2025-04-23] MEDS ORDERED: MORPHINE SULFATE 4 MG/ML CARTRIDGE IV PRN (21:15)
[2025-04-24] VITALS: BP 127/83; O2SAT 95
[2025-04-24 08:40] LABS: BASO % 0.2 % (0.1-1.2); EOS # 0.24 (0.04-0.54); EOS % 2.8 % (0.7-7.0); HEMATOCRIT 31.2 % (34.1-44.9); HEMOGLOBIN 10.6 g/dL (11.2-15.7); LYMPH # 1.23 (1.18-3.74); LYMPH % 14.5 % (19.3-53.1); MEAN CORPUSCULAR HEMOGLOBIN 29.9 pg (25.6-32.2); MONO % 7.1 % (4.7-12.5); NEUT # 6.36 (1.56-6.13); NEUT % 74.7 % (34.0-71.1); PLATELET COUNT 233 K/uL (163-369); RED BLOOD COUNT 3.55 M/uL (3.93-5.22); RED CELL DISTRIBUTION WIDTH 12.3 % (11.6-14.4)
[2025-04-24 08:51] VITALS: BP 123/85; O2SAT 96
[2025-04-24] MEDS ORDERED: VANCOMYCIN HCL 1,000 MG VIAL ONE ×2 (14:38→22:47)
[2025-04-24 16:04] VITALS: BP 130/85; O2SAT 98
[2025-04-25 00:08] VITALS: BP 132/83; O2SAT 100
[2025-04-25 07:30] LABS: ALBUMIN 2.7 gm/dL (3.4-5.0); BILIRUBIN TOTAL 0.66 mg/dL (0.3-1.2); CALCIUM 8.9 mg/dL (8.5-10.1); CREATININE SERUM 0.43 mg/dL (0.55-1.02); GFR 160.26; GLOBULINA 3.7 G/DL (2.4-3.5); POTASSIUM 3.76 mEq/L (3.5-5.1); TOTAL PROTEIN 6.4 gm/dL (6.4-8.2)
[2025-04-25 07:33] LABS: C-REACTIVE PROTEIN 10.6 MG/DL (0.00-0.29)
[2025-04-25 08:31] VITALS: BP 129/83; O2SAT 97
[2025-04-25] MEDS ORDERED: VANCOMYCIN HCL 1,000 MG VIAL ONE ×2 (15:33→23:15)
[2025-04-25 16:00] VITALS: BP 112/78; O2SAT 97
[2025-04-25 16:53] LABS: PH,URINE 7.5 (5.0-8.0); URINE APPEARANCE Clear; URINE BILIRRUBIN Negative (NEGATIVE); URINE BLOOD Small; URINE COLOR Yellow; URINE GLUCOSE Negative (NEGATIVE); URINE KETONE Negative (NEGATIVE); URINE LEUKOCYTE Moderate; URINE NITRATE Negative; URINE PROTEIN Trace (NEGATIVE); URINE UROBILINOGEN 0.2 E.U./dl
[2025-04-25 16:57] LABS: URINE BACTERIA 73.4 uL (0.0-1933); URINE RBC 87.7 uL (0.0-20.8); URINE WBC 139.2 uL (0.0-23.2)
[2025-04-25 17:07] LABS: URINE CAST 0.14 uL (0.0-1.40)
[2025-04-26 00:38] VITALS: BP 115/76; O2SAT 98
[2025-04-26 08:49] VITALS: BP 115/78; O2SAT 98
[2025-04-26] MEDS ORDERED: LINEZOLID600 MG PO (11:58)
[2025-04-26] MEDS ORDERED: PEPCID AC20 MG PO (11:58)
== END 2025-04-26 14:08 | disposition home or self-care (01) | DRG 671 ==
LOC: ER 16:03 → SURH 21:26
PROVIDERS: General Practice; Internal Medicine; Urology; ADMIT Internal Medicine Geriatric Medicine; ATTEND Internal Medicine Geriatric Medicine
PROC: BW21ZZZ Computerized Tomography (CT Scan) of Abdomen and Pelvis (ICD-10-PCS; 2025-04-18)
PROC: 0T9330Z Drainage of Right Kidney Pelvis with Drainage Device, Percutaneous Approach (ICD-10-PCS; 2025-04-19)
PROC: 0T7D4DZ Dilation of Urethra with Intraluminal Device, Percutaneous Endoscopic Approach (ICD-10-PCS; 2025-04-22)
PROC: 30233N1 Transfusion of Nonautologous Red Blood Cells into Peripheral Vein, Percutaneous Approach (ICD-10-PCS; 2025-04-22)
PROC: 0TP Urinary System, Removal (ICD-10-PCS; principal; 2025-04-22 10:00)
DX: N13.5 Crossing vessel and stricture of ureter without hydronephrosis (principal); N13.30 Unspecified hydronephrosis; N39.0 Urinary tract infection, site not specified

== ENCOUNTER 2025-06-14 09:30 | Inpatient (IN) | payer OTHER ==
[~2025-06-14] VITALS: Ht 30.5 cm; Wt 63.0 kg
[~2025-06-14 09:30] MED LIST changes: +LINEZOLID600 MG PO; +PEPCID AC20 MG PO
[2025-06-14 11:29] LABS: URINE APPEARANCE Cloudy; URINE BILIRRUBIN Negative (NEGATIVE); URINE BLOOD Large; URINE COLOR Yellow; URINE GLUCOSE Negative (NEGATIVE); URINE KETONE Negative (NEGATIVE); URINE LEUKOCYTE Large; URINE NITRATE Positive; URINE PROTEIN Trace (NEGATIVE); URINE UROBILINOGEN 0.2 E.U./dl
[2025-06-14 11:32] LABS: URINE BACTERIA 3762.0 uL (0.0-1933); URINE EPITHELIAL CELLS 3.8 uL (0.0-38.8); URINE RBC 211.1 uL (0.0-20.8); URINE WBC 872.5 uL (0.0-23.2)
[2025-06-14 11:40] LABS: URINE CAST 0.73 uL (0.0-1.40)
[2025-06-22] MEDS ORDERED: LIDOCAINE HCL 1%/EPINEPHRINE 20ML VIAL IJ ONE (09:45)
[2025-06-22] MEDS ORDERED: CEFTRIAXONE SODIUM 2,000 MG VIAL IV ONE (09:45)
[2025-06-22] MEDS ORDERED: METRONIDAZOLE/SODIUM CHLORIDE 500 MG/100 ML PIGGYBACK IV ONE (09:45)
[2025-06-22] MEDS ORDERED: BUPIVACAINE HCL 30 ML VIAL IJ ONE (09:45)
[2025-06-22] MEDS ORDERED: FAMOTIDINE20 MG (10:03)
[2025-06-22] MEDS ORDERED: OxyCODONE HCL 5 MG TABLET (ROXICODONE) PO PRN (12:45)
[2025-06-22] MEDS ORDERED: ONDANSETRON HCL 2 MG/ML VIAL IV PRN (12:45)
[2025-06-22] MEDS ORDERED: RINGERS SOLUTION,LACTATED 1,000 ML IV SCH (12:45)
[2025-06-22] MEDS ORDERED: MORPHINE SULFATE 4 MG/ML CARTRIDGE IV PRN (12:45)
[2025-06-22] MEDS ORDERED: MORPHINE SULFATE 4 MG/ML VIAL IV ONE ×2 (13:25→14:40)
[2025-06-22] MEDS ORDERED: ACETAMINOPHEN 500 MG GEL..CAP PO SCH (14:00)
[2025-06-22 16:39] LABS: BASO % 0.1 % (0.1-1.2); EOS # 0.00 (0.04-0.54); EOS % 0.0 % (0.7-7.0); LYMPH # 0.77 (1.18-3.74); LYMPH % 5.2 % (19.3-53.1); MEAN PLATELET VOLUME 10.20 fl (9.4-12.4); MONO # 0.99 (0.24-0.82); MONO % 6.6 % (4.7-12.5); NEUT # 13.09 (1.56-6.13); NEUT % 87.8 % (34.0-71.1); RED CELL DISTRIBUTION WIDTH 12.5 % (11.6-14.4)
[2025-06-22] MEDS ORDERED: HYOSCYAMINE SULFATE 0.125 MG TAB.SUBL SL SCH (17:00)
[2025-06-22] MEDS ORDERED: METOCLOPRAMIDE HCL 5 MG/ML VIAL IV SCH (17:00)
[2025-06-22] MEDS ORDERED: CELECOXIB 200 MG CAPSULE PO SCH (17:00)
[2025-06-22] MEDS ORDERED: POLYETHYLENE GLYCOL 3350 17 GM BLIST.PACK PO SCH (17:00)
[2025-06-22] MEDS ORDERED: GABAPENTIN 300 MG CAPSULE PO SCH (17:00)
[2025-06-22 20:15] VITALS: BP 91/59; O2SAT 97
[2025-06-22] MEDS ORDERED: SIMETHICONE 125 MG CAPSULE PO SCH (21:00)
[2025-06-22] MEDS ORDERED: FAMOTIDINE/PF 20 MG/2 ML VIAL IV PUSH SCH (21:00)
[2025-06-23 00:36] VITALS: BP 101/70; O2SAT 95
[2025-06-23 06:51] LABS: BASO % 0.2 % (0.1-1.2); EOS # 0.00 (0.04-0.54); EOS % 0.0 % (0.7-7.0); LYMPH # 1.14 (1.18-3.74); LYMPH % 9.5 % (19.3-53.1); MEAN PLATELET VOLUME 10.20 fl (9.4-12.4); MONO # 1.00 (0.24-0.82); MONO % 8.3 % (4.7-12.5); NEUT # 9.82 (1.56-6.13); NEUT % 81.8 % (34.0-71.1); RED CELL DISTRIBUTION WIDTH 12.7 % (11.6-14.4)
[2025-06-23 08:03] LABS: BUN CREA RATIO 12.0 (7.0-25.0); CREATININE SERUM 0.74 mg/dL (0.55-1.02); GFR 85.65; GLUCOSE FASTING 130.0 mg/dL (65-100); OSMOLALITY SERUM 285.0 MOSM/KG (275-295)
[2025-06-23 08:55] VITALS: BP 113/75; O2SAT 95
[2025-06-23] MEDS ORDERED: LACTOBACILLUS ACIDOPHILUS 1 CAP CAP PO SCH (09:00)
[2025-06-23] MEDS ORDERED: LACTULOSE 20 G/30 ML BLIST.PACK PO SCH (09:00)
[2025-06-23] MEDS ORDERED: SOD FERRIC GLUC COMPLX/SUCROSE 62.5 MG in 0.9 % SODIUM CHLORIDE 50 ML IV NR (10:30)
[2025-06-23] MEDS ORDERED: Cyanocobalamin/Mecobalamin 1 TAB.SL SL NR (10:30)
[2025-06-23 15:34] LABS: BASO % 0.2 % (0.1-1.2); EOS # 0.01 (0.04-0.54); EOS % 0.1 % (0.7-7.0); LYMPH # 1.23 (1.18-3.74); LYMPH % 7.4 % (19.3-53.1); MEAN PLATELET VOLUME 10.20 fl (9.4-12.4); MONO # 1.16 (0.24-0.82); MONO % 7.0 % (4.7-12.5); NEUT # 14.12 (1.56-6.13); NEUT % 85.1 % (34.0-71.1); RED CELL DISTRIBUTION WIDTH 13.0 % (11.6-14.4)
[2025-06-23 16:17] VITALS: BP 103/64; O2SAT 97
[2025-06-23] MEDS ORDERED: ENOXAPARIN SODIUM 40 MG/0.4 ML SYRINGE SUBCUTANEO SCH (17:00)
[2025-06-23 21:34] LABS: RH NEGATIVE
[2025-06-24 01:29] VITALS: BP 122/87; O2SAT 96
[2025-06-24] MEDS ORDERED: Cyanocobalamin/Mecobalamin 1 TAB.SL SL SCH (09:00)
[2025-06-24] MEDS ORDERED: ENOXAPARIN SODIUM 40 MG/0.4 ML SYRINGE SUBCUTANEO SCH (09:00)
[2025-06-24] MEDS ORDERED: SOD FERRIC GLUC COMPLX/SUCROSE 62.5 MG in 0.9 % SODIUM CHLORIDE 50 ML IV SCH (09:00)
[2025-06-24] MEDS ORDERED: METOCLOPRAMIDE HCL 10 MG TABLET PO SCH ×2 (11:00→21:00)
[2025-06-24] MEDS ORDERED: AMINOCAPROIC ACID 250 MG/ML VIAL IV STA (11:29)
[2025-06-24] MEDS ORDERED: DEXTROSE 5 % AND 0.9 % NACL 1,000 ML IV SCH (13:00)
[2025-06-24 13:19] LABS: BASO % 0.2 % (0.1-1.2); EOS # 0.03 (0.04-0.54); EOS % 0.2 % (0.7-7.0); LYMPH # 1.20 (1.18-3.74); LYMPH % 7.5 % (19.3-53.1); MEAN PLATELET VOLUME 10.40 fl (9.4-12.4); MONO # 0.59 (0.24-0.82); MONO % 3.7 % (4.7-12.5); NEUT # 13.98 (1.56-6.13); NEUT % 87.6 % (34.0-71.1); RED CELL DISTRIBUTION WIDTH 13.6 % (11.6-14.4)
[2025-06-24] MEDS ORDERED: AMINOCAPROIC ACID 250 MG/ML VIAL IV SCH (14:00)
[2025-06-24 17:20] VITALS: BP 121/77; O2SAT 97
[2025-06-24] MEDS ORDERED: PIPERACILLIN/TAZOBACTAM SODIUM 3.375 GM in 0.9 % SODIUM CHLORIDE 100 ML IV SCH (18:00)
[2025-06-24] MEDS ORDERED: METOCLOPRAMIDE HCL 5 MG/ML VIAL IV SCH (21:00)
[2025-06-24] MEDS ORDERED: FAMOTIDINE/PF 20 MG in 0.9 % SODIUM CHLORIDE 8 ML IV PUSH SCH (21:00)
[2025-06-25] MEDS ORDERED: MORPHINE SULFATE 4 MG/ML CARTRIDGE IV PRN (01:00)
[2025-06-25 01:10] VITALS: BP 121/77; O2SAT 95
[2025-06-25 08:23] LABS: BUN CREA RATIO 27.0 (7.0-25.0); CREATININE SERUM 0.55 mg/dL (0.55-1.02); GFR 120.63; GLUCOSE FASTING 97.0 mg/dL (65-100); OSMOLALITY SERUM 286.0 MOSM/KG (275-295)
[2025-06-25 08:43] VITALS: BP 129/88; O2SAT 95
[2025-06-25] MEDS ORDERED: ENOXAPARIN SODIUM 40 MG/0.4 ML SYRINGE SUBCUTANEO SCH (09:00)
[2025-06-25] MEDS ORDERED: PANTOPRAZOLE SODIUM 40 MG/VIAL VIAL IV SCH (09:00)
[2025-06-25] MEDS ORDERED: POTASSIUM CHLORIDE IN WATER 100 ML IV NR (12:00)
[2025-06-25 16:16] VITALS: BP 133/91; O2SAT 95
[2025-06-26 00:30] VITALS: BP 132/87; O2SAT 97
[2025-06-26 07:32] LABS: BASO % 0.3 % (0.1-1.2); EOS # 0.06 (0.04-0.54); EOS % 0.6 % (0.7-7.0); LYMPH # 1.34 (1.18-3.74); LYMPH % 14.1 % (19.3-53.1); MEAN PLATELET VOLUME 10.00 fl (9.4-12.4); MONO # 0.56 (0.24-0.82); MONO % 5.9 % (4.7-12.5); NEUT # 7.47 (1.56-6.13); NEUT % 78.5 % (34.0-71.1); RED CELL DISTRIBUTION WIDTH 14.0 % (11.6-14.4)
[2025-06-26 07:38] LABS: BUN CREA RATIO 30.0 (7.0-25.0); CREATININE SERUM 0.56 mg/dL (0.55-1.02); GFR 118.15; GLUCOSE FASTING 123.0 mg/dL (65-100); OSMOLALITY SERUM 299.0 MOSM/KG (275-295)
[2025-06-26 08:45] VITALS: BP 132/84; O2SAT 97
[2025-06-26] MEDS ORDERED: ENOXAPARIN SODIUM 40 MG/0.4 ML SYRINGE SUBCUTANEO SCH (09:00)
[2025-06-26] MEDS ORDERED: POTASSIUM CHLORIDE IN WATER 100 ML IV NR (12:00)
[2025-06-26] MEDS ORDERED: FLUCONAZOLE IN NACL,ISO-OSM 50 ML IV SCH (12:00)
[2025-06-26 16:11] VITALS: BP 121/82; O2SAT 97
[2025-06-27 00:54] VITALS: BP 119/82; O2SAT 97
[2025-06-27] MEDS ORDERED: MORPHINE SULFATE 4 MG/ML CARTRIDGE IV PRN (03:15)
[2025-06-27 08:00] VITALS: BP 118/81; O2SAT 97
[2025-06-27] MEDS ORDERED: SODIUM CHLORIDE 0.45 % 1,000 ML IV SCH (12:45)
[2025-06-27 16:00] VITALS: BP 133/86; O2SAT 97
[2025-06-27] MEDS ORDERED: FLUCONAZOLE IN NACL,ISO-OSM 2 MG/ML ML IV SCH (17:00)
[2025-06-28 00:56] VITALS: BP 129/87; O2SAT 98
[2025-06-28] MEDS ORDERED: ONDANSETRON HCL 2 MG/ML VIAL IV STA (09:29)
[2025-06-28] MEDS ORDERED: ONDANSETRON HCL 2 MG/ML VIAL IV PRN (09:30)
[2025-06-28 09:33] VITALS: BP 130/85; O2SAT 97
[2025-06-28 12:01] LABS: BASO % 0.3 % (0.1-1.2); EOS # 0.26 (0.04-0.54); EOS % 2.6 % (0.7-7.0); LYMPH # 1.38 (1.18-3.74); LYMPH % 13.7 % (19.3-53.1); MEAN PLATELET VOLUME 9.70 fl (9.4-12.4); MONO # 0.58 (0.24-0.82); MONO % 5.8 % (4.7-12.5); NEUT # 7.69 (1.56-6.13); NEUT % 76.2 % (34.0-71.1); RED CELL DISTRIBUTION WIDTH 13.5 % (11.6-14.4)
[2025-06-28 12:28] LABS: BUN CREA RATIO 27.0 (7.0-25.0); CREATININE SERUM 0.41 mg/dL (0.55-1.02); GFR 169.31; GLUCOSE FASTING 96.0 mg/dL (65-100); OSMOLALITY SERUM 281.0 MOSM/KG (275-295)
[2025-06-28 16:26] VITALS: BP 126/80; O2SAT 98
[2025-06-28] MEDS ORDERED: AA 4.25%/CAL/LYTES/DEXT 5% 1,000 ML PERIFERAL SCH (17:00)
[2025-06-28] MEDS ORDERED: PANTOPRAZOLE SODIUM 40 MG/VIAL VIAL IV SCH (21:00)
[2025-06-29 01:26] VITALS: BP 123/81; O2SAT 96
[2025-06-29 08:00] VITALS: BP 121/83; O2SAT 97
[2025-06-29 17:29] VITALS: BP 109/76; O2SAT 97
[2025-06-30 00:34] VITALS: BP 104/65; O2SAT 100
[2025-06-30 06:19] LABS: BASO % 0.2 % (0.1-1.2); EOS # 0.49 (0.04-0.54); EOS % 5.5 % (0.7-7.0); LYMPH # 1.59 (1.18-3.74); LYMPH % 17.8 % (19.3-53.1); MEAN PLATELET VOLUME 10.10 fl (9.4-12.4); MONO # 0.62 (0.24-0.82); MONO % 6.9 % (4.7-12.5); NEUT # 6.06 (1.56-6.13); NEUT % 67.7 % (34.0-71.1); RED CELL DISTRIBUTION WIDTH 14.1 % (11.6-14.4)
[2025-06-30 06:46] LABS: BUN CREA RATIO 27.0 (7.0-25.0); CREATININE SERUM 0.63 mg/dL (0.55-1.02); GFR 103.14; GLUCOSE FASTING 117.0 mg/dL (65-100); OSMOLALITY SERUM 282.0 MOSM/KG (275-295)
[2025-06-30] MEDS ORDERED: POTASSIUM CHLORIDE 20MEQ/100ML H2O PB IV NR (11:00)
[2025-06-30] MEDS ORDERED: POTASSIUM CHLORIDE 8 MEQ TABLET PO NR (13:00)
== END 2025-06-30 16:35 | disposition home or self-care (01) | DRG 330 ==
LOC: SURH 06-22 06:55 → O/R 06-22 07:41 → SURH 06-22 09:30
PROVIDERS: Internal Medicine Geriatric Medicine; Urology; ADMIT Colon & Rectal Surgery; ATTEND Colon & Rectal Surgery
PROC: 0WUF47Z Supplement Abdominal Wall with Autologous Tissue Substitute, Percutaneous Endoscopic Approach (ICD-10-PCS; 2025-06-22)
PROC: 0UT24ZZ Resection of Bilateral Ovaries, Percutaneous Endoscopic Approach (ICD-10-PCS; 2025-06-22)
PROC: 0TN60ZZ Release Right Ureter, Open Approach (ICD-10-PCS; 2025-06-22)
PROC: 0TSB0ZZ Reposition Bladder, Open Approach (ICD-10-PCS; 2025-06-22)
PROC: 0TB60ZZ Excision of Right Ureter, Open Approach (ICD-10-PCS; 2025-06-22)
PROC: 0TS60ZZ Reposition Right Ureter, Open Approach (ICD-10-PCS; 2025-06-22)
PROC: 0T780DZ Dilation of Bilateral Ureters with Intraluminal Device, Open Approach (ICD-10-PCS; 2025-06-22)
PROC: 0DTN4ZZ Resection of Sigmoid Colon, Percutaneous Endoscopic Approach (ICD-10-PCS; principal; 2025-06-22 06:55)
PROC: 0DBP4ZZ Excision of Rectum, Percutaneous Endoscopic Approach (ICD-10-PCS; 2025-06-22 06:55)
PROC: 30233N1 Transfusion of Nonautologous Red Blood Cells into Peripheral Vein, Percutaneous Approach (ICD-10-PCS; 2025-06-23)
PROC: 0D9670Z Drainage of Stomach with Drainage Device, Via Natural or Artificial Opening (ICD-10-PCS; 2025-06-24)
DX: N82.4 Other female intestinal-genital tract fistulae (principal); K56.7 Ileus, unspecified; K91.89 Other postprocedural complications and disorders of digestive system; K57.32 Diverticulitis of large intestine without perforation or abscess without bleeding; N80.322 Deep endometriosis of the posterior cul-de-sac; N80.34 Deep endometriosis of the pelvic sidewall; N80.A61 Endometriosis of right ureter, unspecified depth; N13.5 Crossing vessel and stricture of ureter without hydronephrosis; R59.0 Localized enlarged lymph nodes; K66.0 Peritoneal adhesions (postprocedural) (postinfection); N83.01 Follicular cyst of right ovary; D64.89 Other specified anemias; R00.0 Tachycardia, unspecified; R31.9 Hematuria, unspecified

== ENCOUNTER 2025-07-06 18:14 | Emergency (ER) | payer OTHER ==
[~2025-07-06] VITALS: Ht 167.6 cm; Wt 68.0 kg
[~2025-07-06 18:14] MED LIST changes: +FAMOTIDINE20 MG
[2025-07-06 19:04] VITALS: BP 110/67; O2SAT 99
== END 2025-07-06 19:04 | disposition home or self-care (01) ==
LOC: ER 18:19
DX: Z43.2 Encounter for attention to ileostomy (principal)

== ENCOUNTER → 2025-07-18 11:57 | Outpatient (CLI) | payer OTHER ==
[2025-07-18 12:25] LABS: BASO % 0.6 % (0.1-1.2); EOS # 0.61 (0.04-0.54); EOS % 8.6 % (0.7-7.0); LYMPH # 1.98 (1.18-3.74); LYMPH % 28.0 % (19.3-53.1); MEAN PLATELET VOLUME 9.40 fl (9.4-12.4); MONO # 0.51 (0.24-0.82); MONO % 7.2 % (4.7-12.5); NEUT # 3.92 (1.56-6.13); NEUT % 55.3 % (34.0-71.1); RED CELL DISTRIBUTION WIDTH 13.7 % (11.6-14.4)
[2025-07-18 12:32] LABS: URINE APPEARANCE Turbid; URINE BILIRRUBIN Negative (NEGATIVE); URINE BLOOD Large; URINE COLOR Yellow; URINE GLUCOSE Negative (NEGATIVE); URINE KETONE Negative (NEGATIVE); URINE LEUKOCYTE Large; URINE NITRATE Negative; URINE UROBILINOGEN 0.2 E.U./dl
[2025-07-18 12:35] LABS: URINE BACTERIA 1973.9 uL (0.0-1933); URINE EPITHELIAL CELLS 7.0 uL (0.0-38.8); URINE RBC 4481.9 uL (0.0-20.8); URINE WBC 4000.7 uL (0.0-23.2)
[2025-07-18 12:44] LABS: URINE CAST 1.31 uL (0.0-1.40); URINE PROTEIN 300 (NEGATIVE)
[2025-07-18 12:46] LABS: URINE YEAST FEW /hpf
[2025-07-18 13:19] LABS: ALT/SGPT 28.0 U/L (12-78); AST/SGOT 12.0 U/L (15-37); BILIRUBIN TOTAL 0.48 mg/dL (0.3-1.2); BUN CREA RATIO 18.0 (7.0-25.0); CREATININE SERUM 0.61 mg/dL (0.55-1.02); GFR 107.05; GLOBULINA 3.8 G/DL (2.4-3.5); GLUCOSE FASTING 92.0 mg/dL (65-100); OSMOLALITY SERUM 282.0 MOSM/KG (275-295)
== END | disposition home or self-care (01) ==
LOC: LAB 11:57
PROVIDERS: ATTEND Urology
DX: N30.00 Acute cystitis without hematuria (principal); R31.0 Gross hematuria

== ENCOUNTER 2025-07-18 12:41 | Outpatient (CLI) | payer OTHER | END 2025-07-18 12:43 | disposition home or self-care (01) | LOC: TOM 12:41 | PROVIDERS: ATTEND Urology | DX: R31.0 Gross hematuria (principal) ==